=== PATIENT | male | born 1945 | race Caucasian/White ===

== ENCOUNTER 2016-11-27 05:58 | Inpatient (IN) | payer OTHER ==
[2016-11-27] MEDS ORDERED: CHLORHEXIDINE GLUC HIBICLENS 118 ML BTL TP ONE (06:00)
[2016-11-27] MEDS ORDERED: THROMBIN (RECOMBINANT) 20,000 UNIT VIAL TP ONE (07:04)
[2016-11-27] MEDS ORDERED: BUPIVACAINE/EPI 0.25% 30 ML SDV ONE (07:05)
[2016-11-27] MEDS ORDERED: BACITRACIN 50,000 UNITS/10 ML SYR IRR ONE ×3 (07:05→15:00)
[2016-11-27] MEDS ORDERED: LIDOCAINE 1% 5 ML SDV ONE (08:24)
[2016-11-27] MEDS ORDERED: ceFAZolin 2 GM/DEXTROSE 100 ML IV ONE (09:00)
[2016-11-27] MEDS ORDERED: PROPOFOL/EMULSION 500 MG/50 ML BOTTLE IV ONE ×3 (10:32→14:00)
[2016-11-27] MEDS ORDERED: fentaNYL 250 MCG/5 ML INJ ONE (10:32)
[2016-11-27] MEDS ORDERED: MIDAZOLAM 2 MG/2 ML VIAL ONE (10:52)
[2016-11-27] MEDS ORDERED: LACTULOSE 20 GM/30 ML UDCUP PO PRN (10:55)
[2016-11-27] MEDS ORDERED: MAGNESIUM HYDROXIDE 30 ML UDCUP PO PRN (10:55)
[2016-11-27] MEDS ORDERED: ONDANSETRON 4 MG/2 ML VIAL IVP PRN (10:55)
[2016-11-27] MEDS ORDERED: oxyCODONE IR 5 MG TAB PO PRN (10:55)
[2016-11-27] MEDS ORDERED: POLYETHYLENE GLYCOL 3350 17 GM PKT PO PRN (10:55)
[2016-11-27] MEDS ORDERED: TEMAZEPAM 15 MG CAP PO PRN (10:55)
[2016-11-27] MEDS ORDERED: DIAZEPAM 5 MG TAB PO PRN (10:55)
[2016-11-27] MEDS ORDERED: BISACODYL 10 MG SUPP PR PRN (10:55)
[2016-11-27] MEDS ORDERED: HYDROmorphONE/DILAUDID 6 MG/30 ML PCA IV PRN (10:55)
[2016-11-27] MEDS ORDERED: DIAZEPAM 10 MG/2 ML SYR IVP PRN (10:55)
[2016-11-27] MEDS ORDERED: NALOXONE HCL 0.4 MG/ML INJ IVP PRN (10:55)
[2016-11-27] MEDS ORDERED: diphenhydrAMINE 25 MG CAP PO PRN (10:55)
[2016-11-27] MEDS ORDERED: REMIFENTANIL HCL 1 MG VIAL ONE ×2 (11:20→14:01)
[2016-11-27] MEDS ORDERED: PHENYLEPHRINE HCL 100 MCG/ML SYR ONE (11:28)
[2016-11-27] MEDS ORDERED: epHEDrine SULFATE 10 MG/ML SYR ONE ×2 (11:35→11:47)
[2016-11-27] MEDS ORDERED: ceFAZolin 1 GM VIAL ONE ×2 (14:22)
[2016-11-27] MEDS ORDERED: DESFLURANE 240 ML BOTTLE IH ONE (15:46)
[2016-11-27] MEDS ORDERED: HYDROmorphONE/DILAUDID 2 MG/ML SYR ONE (16:08)
[2016-11-27 16:26] LABS: % IMMATURE GRANULYOCYTES 0.8 % (0.0-1.1); ABSOLUTE IMMATURE GRANULOCYTES 0.06 10^3/uL (0.00-0.10); ADD DIFF? NO; ADD MORPH? NO; ADD SCAN? NO; ATYPICAL LYMPHOCYTE FLAG 10 (0-99); FRAGMENT RBC FLAG 0 (0-99); HEMATOCRIT 38.9 % (40.0-51.0); HEMOGLOBIN 13.7 g/dL (13.7-17.5); LEFT SHIFT FLG 10 (0-99); LIPEMIA HEMOLYSIS FLAG 90 (0-99); MEAN CELL HEMOGLOBIN 32.6 pg (27.9-34.1); MEAN CELL HEMOGLOBIN CONCENTR. 35.2 g/dL (32.4-36.7); MEAN CELL VOLUME 92.6 fL (81.5-99.8); MEAN PLATELET VOLUME 9.3 fL (8.7-11.7); PLATELET CLUMPS FLAG 0 (0-99); PLATELET COUNT 197 10^3/uL (150-400); RED CELL DISTRIBUTION WIDTH 12.6 % (11.5-15.2)
[2016-11-27] MEDS ORDERED: ONDANSETRON 4 MG/2 ML VIAL ONE (16:30)
--- NOTE | 2016-11-27 17:18 | SOAPPROG ---
SOAP Progress Note Assessment/Plan: Post Op Visit: S: Awake and alert. NAD. Pt with expected lower back pain O: AFVSS/PERRLA/EOMI no droop CN 2-12 grossly intact +lt touch 5/5 BUE/BLE = CDI CHRISTA in place and working well A/P: 71 yo male that is s/p TLIF at L3/4, L4/5 and L5/S1 -brace when out of bed -call with any questions or concerns -pt seen by Dr Mayo as well -to floor when able 11/27/16 17:15 Objective: Laboratory Results 11/27/16 16:15 ICD10 Worksheet Patient Problems: Problems Problem Status Diagnosed Arthrodesis status Acute Lumbar radiculitis Acute Lumbar stenosis Acute - ICD10 Problem Qualifiers (1) Lumbar stenosis (2) Lumbar radiculitis (3) Arthrodesis status
[2016-11-27] MEDS ORDERED: HYDROmorphONE/DILAUDID 1 MG/ML SYR ONE (17:30)
[2016-11-27] MEDS ORDERED: fentaNYL 100 MCG/2 ML INJ ONE ×2 (17:30→17:47)
[2016-11-27] MEDS ORDERED: DIAZEPAM 10 MG/2 ML SYR ONE (17:47)
--- NOTE | 2016-11-27 18:16 | DX ---
Fluoroscopy greater than one hour Clinical indication: Fusion. Dose: 43.13 mGy. Two 3-D images were performed for a DLP of 219. Two spot fluoroscopic images provided show a fusion from L3 through the sacrum with interbody disk sp acers present. Impression: Fluoroscopy provided for 4-level lumbar fusion. Please see surgeon's note for full clini waldo details.
--- NOTE | 2016-11-27 18:36 | GOP ---
[f rep st] OPERATIVE REPORT DATE OF OPERATION: 11/27/2016 SURGEON: Francesco Mayo MD FACE PAINTER: Mekhi Schilling PA-C PREOPERATIVE DIAGNOSIS: 1. Lumbar spondylolisthesis. 2. Degenerative lumbar scoliosis. 3. Severe lumbar stenosis at L3-4, L4-5, L5-S1. 4. Right lumbosacral radiculopathy. 5. Lumbar degenerative disk disease. POSTOPERATIVE DIAGNOSIS: 1. Lumbar spondylolisthesis. 2. Degenerative lumbar scoliosis. 3. Severe lumbar stenosis at L3-4, L4-5, L5-S1. 4. Right lumbosacral radiculopathy. 5. Lumbar degenerative disk disease. PROCEDURE PERFORMED: Posterolateral and intervertebral arthrodesis with bilateral decompressions at L3-4, L4-5 (14178, 90998), right hemilaminectomy with a posterolateral and intervertebral arthrodesis at L5-S1 (45010), placement of expandable biomechanical intervertebral devices L3-4, L4-5, L5-S1 (22 [phone] x3), same incision bone graft harvest, microscope, spinal stereotaxis for placement of pedicle sc rews bilaterally, posterior segmental instrumentation, L3, L4, L5, S1. FINDINGS: ESTIMATED BLOOD LOSS: 500 cc. INDICATIONS: The patient is a 71-year-old gentleman who had terrible right leg pain and degenerative scoliotic curve with spondylolisthesis that was degenerative in nature at L4-5, L5-S1 and huge right -sided hypertrophic facet arthropathy at L3-4, L4-5, L5-S1. There was severe foraminal stenosis at e ach of these levels, and he in fact had a degree of spinal stenosis and degenerative disk disease wit h spondylosis at L2-3 but we elected not to treat this. He understood that in time he would almost c ertainly require treatment for this. The risk of continued symptoms, nerve injury, spinal fluid leak , pseudoarthrosis, adjacent segment disease, screw and hardware failure and malposition was discussed . He understood these risks. He did want to proceed with surgery. DESCRIPTION OF PROCEDURE: Patient was taken to the operating room, placed in supine position. Gener al anesthesia was begun. He was flipped prone onto the Lucio table. Care was taken to pad all poi nts of contact. His back was sterilely prepped and draped in the usual fashion. A localizing x-ray was taken with the O-arm that had been introduced sterilely to the field. We made a 9 cm incision fr om the spinous processes of L2 to spinous process of S1. The subcutaneous tissue was dissected using Bovie cautery down through the fascia and Subperiosteal dissection was made down the lamina of L3, L 4, L5, and S1. They were absolutely huge facet joints present on the right-hand side more so than le ft but they were hypertrophic on both sides, and we removed much of the huge hypertrophic facets to a ccess the transverse process of L3, L4, L5, and S1. These were decorticated for posterolateral arthr odesis. We then attached the Stealth reference frame to the L4 spinous process, performed an O arm s pin, and using frameless stealth stereotaxy, we placed pedicle screws bilaterally at L3, L4, L5, and the sacrum, and they all stimulated at acceptable levels. The lowest stim was the left S1 screw whic h was bicortical and we backed it out about 1 full turn after stimming. It stimmed at 19 milliamps. It was still bicortical in the position that we left it. We took 100 mm terry for the left and a 90 m m terry for the right, increased the lordosis on the rods, and then distracted between L3, L4, L5, and S1 and reduced the tulips onto the rods and got nice reduction of the spondylolisthesis. He had a no rmal lumbar lordosis now at this point. We used a high-speed drill to remove all the soft tissue of the bone from the spinous processes of L3, L4, L5, and S1. We then harvested the inferior L3 and the complete L4 spinous process for autologous grafting purposes and we drilled bilateral laminectomies of L3, a complete laminectomy of L4, and a right hemilaminectomy of L5, and this bone was harvested f or autologous grafting purposes. Under the scope we performed bilateral decompressions at L3-4, L4-5 , and there was very severe stenosis right greater than left at both levels. At L5-S1 we decompresse d the right-hand side. We identified the exiting L4, L5 and traversing S1 nerve root as well as the exiting L3 nerve root on the right-hand side. We then swept the thecal sac medially beginning at L3- 4, worked in the axilla of the L3 root and completely removed the disk and the cartilaginous endplate s. We then did likewise at L4-5 removing the disk and the cartilaginous endplates. We then did like andrews at L5-S1 removing the disk and the cartilaginous endplates. We roughened the subchondral bone a t each level with the bone rasp to create arthrodesis and we chose 7 x 28 mm devices for each space a nd we sized them using fluoroscopic guidance and trials. We removed the trials and then inserted the se devices with bone autograft and BMP in each of the disk spaces and then after confirming our locat ion, we expanded the expandable elevate cages at each level and got good uatsdin of height. Ther e was good lumbar lordosis. A final x-ray was taken and all the devices were in excellent position. All of the cap screws connecting the rods to the screws had been tightened according to company spec ification. A cross-link was placed. We decorticated all of the remaining visible bone but most of t he bone had been decorticated prior to this and we placed bone autograft and BMP posterolaterally ling aterally. The cross-link was placed. A subfascial drain was placed, and we closed the incision in multiple layers using Vicryl sutures. A running PDS was placed in the skin itself. COMPLICATIONS: None. /[id number]/MODL
[2016-11-27] MEDS: HYDROmorphONE/DILAUDID 1 MG/ML SYR IVP PRN (18:46)
[2016-11-27] MEDS: SENNOSIDES/DOCUSATE SODIUM TAB PO SCH (20:52)
[2016-11-27] MEDS: morphINE SR 15 MG TAB PO SCH (20:53)
[2016-11-27] MEDS ORDERED: FAMOTIDINE 20 MG/NACL 50 ML IV SCH (21:00)
[2016-11-27] MEDS: NS W/ 20 KCl/L 1,000 ML IV SCH (21:04)
[2016-11-27] MEDS: DORZOLAMIDE 2% OPTH DROPS LEFTEYE SCH (21:10)
[2016-11-27] MEDS: TRAVOPROST Z 0.004% 2.5 ML OPHT.BTL LEFTEYE SCH (21:10)
[2016-11-27] MEDS: FAMOTIDINE 20 MG TAB PO SCH (21:13)
[2016-11-28] MEDS: HYDROCODONE/APAP 10/325 TAB PO PRN ×4 (02:26→16:29)
[2016-11-28] MEDS: HYDROmorphONE/DILAUDID 1 MG/ML SYR IVP PRN (03:36)
[2016-11-28 05:41] LABS: % IMMATURE GRANULYOCYTES 0.5 % (0.0-1.1); ABSOLUTE IMMATURE GRANULOCYTES 0.04 10^3/uL (0.00-0.10); ADD DIFF? NO; ADD MORPH? NO; ADD SCAN? NO; ATYPICAL LYMPHOCYTE FLAG 10 (0-99); FRAGMENT RBC FLAG 0 (0-99); HEMATOCRIT 35.4 % (40.0-51.0); HEMOGLOBIN 12.3 g/dL (13.7-17.5); LEFT SHIFT FLG 0 (0-99); LIPEMIA HEMOLYSIS FLAG 90 (0-99); MEAN CELL HEMOGLOBIN 33.4 pg (27.9-34.1); MEAN CELL HEMOGLOBIN CONCENTR. 34.7 g/dL (32.4-36.7); MEAN CELL VOLUME 96.2 fL (81.5-99.8); MEAN PLATELET VOLUME 9.6 fL (8.7-11.7); PLATELET CLUMPS FLAG 20 (0-99); PLATELET COUNT 183 10^3/uL (150-400); RED BLOOD CELL COUNT 3.68 10^6/uL (4.40-6.38); RED CELL DISTRIBUTION WIDTH 12.9 % (11.5-15.2)
[2016-11-28 05:55] LABS: ANION GAP 6 mEq/L (8-16); CALCIUM 8.1 mg/dL (8.5-10.4); CARBON DIOXIDE 26 mEq/l (22-31); CHLORIDE 102 mEq/L (97-110); GLOMERULAR FILTRATION RATE > 60; GLUCOSE 132 mg/dL (70-100); POTASSIUM 4.9 mEq/L (3.5-5.2); SODIUM 134 mEq/L (134-144)
[2016-11-28] MEDS: PANTOPRAZOLE SODIUM 40 MG TAB PO SCH (07:58)
[2016-11-28] MEDS: morphINE SR 15 MG TAB PO SCH ×2 (07:58→20:01)
[2016-11-28] MEDS: SENNOSIDES/DOCUSATE SODIUM TAB PO SCH ×2 (07:58→20:00)
[2016-11-28] MEDS: FAMOTIDINE 20 MG TAB PO SCH ×2 (08:00→20:00)
[2016-11-28] MEDS: DORZOLAMIDE 2% OPTH DROPS LEFTEYE SCH ×2 (08:05→20:13)
--- NOTE | 2016-11-28 08:25 | NEUSURGPN ---
Assessment/Plan: /P: 71 yo male that is s/p TLIF at L3/4, L4/5 and L5/S1 -brace when out of bed -Optimize pain management -PT/OT -DVT prophy: TEDs, SCDs, Lovenox POD #3 -Postop x-rays pending -CHRISTA X1- 455 out- will pull tomorrow -Please call with any neuro or motor exam changes -Patient seen and discussed with Dr. Mayo Subjective: Patient in pain, no leg pain but hasn't been out of bed yet. Denies fever, chills. Objective: NAD, VSS BUE/BLE 5/5= Sensation intact to lt touch Incision c/d/i- CHRISTA X1- output 455 Catheter Insertion Date: 11/27/16 - Physician Discussed Patient with : Gael Patient Seen by : Gael Neurosurgery Physical Exam - Vitals, I&O, Labs I and O 11/27/16 11/28/16 11/29/16 05:59 05:59 05:59 Intake Total 5230 Output Total 1955 140 Balance 3275 -140 Weight 79.379 kg Intake: Oral (ml) 2030 IV Intake (ml) 3200 Output: Urine (ml) 850 Catheter 850 Estimated Blood Loss (ml) 500 Wound Drainage (ml) 605 140 Posterior Back Lucio 455 140 Starkey #1 Right Posterior 150 Lucio Starkey Other: Number of Voids Catheter 1 Vital Signs Temp Pulse Resp BP Pulse Ox 36.6 C 81 16 117/69 95 11/28/16 08:00 11/28/16 08:00 11/28/16 08:00 11/28/16 08:00 11/28/16 08:00 Laboratory Results 11/28/16 05:05 11/28/16 05:05 ICD10 Worksheet Patient Problems: Problems Problem Status Diagnosed Arthrodesis status Acute Lumbar radiculitis Acute Lumbar stenosis Acute
[2016-11-28] MEDS ORDERED: NON-FORMULARY NEW DRUG (Omeprazole [Prilosec 20 Mg] 20 MG) PO SCH (09:00)
[2016-11-28] MEDS: NS W/ 20 KCl/L 1,000 ML IV SCH (10:24)
--- NOTE | 2016-11-28 16:58 | DX ---
Lumbar Spine, Two Views November 28, 2016 Indication: Post fusion. Evaluate hardware. Technique: Upright AP and lateral views. Findings: The bilateral posterior fusion construct extending from L3 to S1 consists of dual posterior rods, transverse brace at L4-L5, and bilateral transvertebral screws at L3, L4, L5, and S1. Devices reside in the L3-L4, L4-L5, and L5-S1 interbody spaces. The hardware is well seated. No perihardware fracture or lucency. L2 is retrolisthesed 3 mm on L3 and L3 is retrolisthesed 4 mm on L4. No compress ion deformity. A surgical drain is present in the posterior soft tissues. Mildly gaseous large bowel pattern. Impression: New well-seated posterior fusion construct extending from L3 to S1.
[2016-11-28] MEDS: ONDANSETRON DISINTEGRATING 4 MG TAB PO PRN (20:00)
[2016-11-28] MEDS: TRAVOPROST Z 0.004% 2.5 ML OPHT.BTL LEFTEYE SCH (20:13)
[2016-11-29] MEDS: HYDROCODONE/APAP 10/325 TAB PO PRN ×2 (04:00→16:29)
--- NOTE | 2016-11-29 07:34 | NEUSURGPN ---
Date of Surgery: 11/27/16 Post Op Day: 2 Assessment/Plan: Assessment: 71 yo male that is s/p TLIF at L3/4, L4/5 and L5/S1 POD #2 Plan: -brace when out of bed-tolerating well -Optimize pain management-doing well with current plan -PT/OT-CPM -DVT prophy: TEDs, SCDs, Lovenox POD #3 -Postop x-rays look good-no complications or loosening -CHRISTA to be removed today -Please call with any neuro or motor exam changes -Patient seen and discussed with Dr. Mayo Subjective: Awake and alert. Pt has some lower back pain but is doing well for the most part with no leg complaints. No f/c/n/v/d. Objective: NAD, VSS BUE/BLE 5/5= Sensation intact to lt touch Incision c/d/i- CHRISTA X1-to be removed this am Neuro Check Frequency: per routine Urinary Catheter in Place: No Catheter Insertion Date: 11/27/16 - Physician Discussed Patient with : Gael Patient Seen by : Gael Neurosurgery Physical Exam - Vitals, I&O, Labs I and O 11/28/16 11/29/16 11/30/16 05:59 05:59 05:59 Intake Total 5230 1800 Output Total 1955 1545 Balance 3275 255 Weight 79.379 kg Intake: Oral (ml) 2030 1800 IV Intake (ml) 3200 Output: Urine (ml) 850 475 Catheter 850 Urinal 475 Estimated Blood Loss (ml) 500 Wound Drainage (ml) 605 1070 Posterior Back Lucio 455 1070 Starkey #1 Right Posterior 150 Lucio Starkey Other: Number of Voids Catheter 1 Toilet 1 Number of Emesis 3 Occurrences Vital Signs Temp Pulse Resp BP Pulse Ox 36.8 C 91 16 103/61 96 11/29/16 04:00 11/29/16 04:00 11/29/16 04:00 11/29/16 04:00 11/29/16 04:00 Laboratory Results 11/28/16 05:05 11/28/16 05:05 ICD10 Worksheet Patient Problems: Problems Problem Status Diagnosed Arthrodesis status Acute Lumbar radiculitis Acute Lumbar stenosis Acute - ICD10 Problem Qualifiers (1) Lumbar stenosis (2) Lumbar radiculitis (3) Arthrodesis status
[2016-11-29] MEDS: morphINE SR 15 MG TAB PO SCH (08:41)
[2016-11-29] MEDS: PANTOPRAZOLE SODIUM 40 MG TAB PO SCH (08:42)
[2016-11-29] MEDS: FAMOTIDINE 20 MG TAB PO SCH ×2 (08:43→20:37)
[2016-11-29] MEDS: SENNOSIDES/DOCUSATE SODIUM TAB PO SCH ×2 (08:44→20:37)
[2016-11-29] MEDS: DORZOLAMIDE 2% OPTH DROPS LEFTEYE SCH ×2 (09:28→22:53)
[2016-11-29] MEDS ORDERED: PROMETHAZINE HCL 25 MG/ML VIAL ONE (18:52)
[2016-11-29] MEDS ORDERED: METOCLOPRAMIDE 10 MG/2 ML VIAL IVP PRN (18:54)
[2016-11-29] MEDS ORDERED: SCOPOLAMINE HYDROBROMIDE 1.5 MG PATCH TD PRN (18:56)
[2016-11-29] MEDS: NS W/ 20 KCl/L 1,000 ML IV SCH (19:03)
[2016-11-29] MEDS: PROMETHAZINE HCL 25 MG/ML VIAL IVP PRN (19:04)
[2016-11-29] MEDS: METHOCARBAMOL 750 MG TAB PO PRN (20:38)
[2016-11-29] MEDS: ACETAMINOPHEN 325 MG TAB PO PRN (20:38)
[2016-11-29] MEDS: TRAVOPROST Z 0.004% 2.5 ML OPHT.BTL LEFTEYE SCH (22:54)
[2016-11-30] MEDS: ACETAMINOPHEN 325 MG TAB PO PRN ×3 (04:59→16:17)
[2016-11-30] MEDS: ONDANSETRON DISINTEGRATING 4 MG TAB PO PRN ×2 (04:59→10:26)
--- NOTE | 2016-11-30 08:50 | NEUSURGPN ---
Date of Surgery: 11/27/16 Post Op Day: 3 Assessment/Plan: Assessment: 71 yo male that is s/p TLIF at L3/4, L4/5 and L5/S1 POD #3 Plan: -brace when out of bed-tolerating well -Optimize pain management-doing well with current plan -pt had some nausea last night and medications adjusted-doing better now -will work on bowel protocol today and if able to move bowels then pt wants to dc home today -PT/OT-CPM -DVT prophy: TEDs, SCDs, Lovenox POD #3 -Postop x-rays look good-no complications or loosening-reviewed with the patient -CHRISTA removed already -Please call with any neuro or motor exam changes -Patient discussed with Dr. Mayo Subjective: Awake and alert. NAD. Pt with some expected lower back pain. No gaston/neck/chest /abd or gu complaints. No nausea now. No f/c/n/v/d now. Objective: NAD, VSS BUE/BLE 5/5= Sensation intact to lt touch Incision c/d/i- CHRISTA removed intact Neuro Check Frequency: per routine Urinary Catheter in Place: No Catheter Insertion Date: 11/27/16 - Physician Discussed Patient with : Gael Neurosurgery Physical Exam - Vitals, I&O, Labs I and O 11/29/16 11/30/16 12/01/16 05:59 05:59 05:59 Intake Total 1800 500 Output Total 1545 300 Balance 255 200 Intake: Oral (ml) 1800 500 Output: Urine (ml) 475 Urinal 475 Emesis (ml) 300 Wound Drainage (ml) 1070 Posterior Back Lucio 1070 Starkey Other: Number of Voids Toilet 1 1 Number of Emesis 3 Occurrences Vital Signs Temp Pulse Resp BP Pulse Ox 36.9 C 84 15 115/70 94 11/30/16 08:00 11/30/16 08:00 11/30/16 08:00 11/30/16 08:00 11/30/16 08:00 Laboratory Results 11/28/16 05:05 11/28/16 05:05 ICD10 Worksheet Patient Problems: Problems Problem Status Diagnosed Arthrodesis status Acute Lumbar radiculitis Acute Lumbar stenosis Acute - ICD10 Problem Qualifiers (1) Lumbar stenosis (2) Lumbar radiculitis (3) Arthrodesis status
--- NOTE | 2016-11-30 09:02 | PDIAF ---
- Diagnosis Diagnosis: s/p TLIF L3-S1 Code Status: Full Code - Medication Management Discharge Medications: Medications to Continue on Transfer Acetaminophen [Tylenol 325mg (*)] 325 mg PO DAILY PRN 10/21/16 [Last Taken 11/26 22:00] Dorzolamide 2% [Trusopt 2% (*)] 1 drop LEFTEYE BID 10/21/16 [Last Taken 11/26/16 ] Multivitamins [Multivitamin (*)] 1 each PO DAILY 10/21/16 [Last Taken 11/13/16] Omeprazole [Prilosec 20 mg] 20 mg PO DAILY 10/21/16 [Last Taken 11/26/16] Travoprost Z 0.004% [Travatan Z 0.004% (*)] 1 drops LEFTEYE HS 10/21/16 [Last Taken 11/26/16] Diazepam [Valium 5 MG (*)] 5 mg PO QID PRN #30 tab 11/30/16 [Last Taken Unknown] HYDROcodone/APAP 10/325 [[place] 10/325 (*)] 1 - 2 tab PO Q6HRS PRN #90 tab [Last Taken Unknown] Methocarbamol [Robaxin 750 mg (*)] 750 mg PO QID PRN #50 tab 11/30/16 [Last Taken Unknown] Ondansetron Odt [Zofran Odt 4 mg (*)] 4 - 8 mg PO Q6HRS PRN #30 tab 11/30/16 [ Last Taken Unknown] Scopolamine Hydrobromide [Transderm-Scop] 1.5 mg TD Q3D PRN #5 patch 11/30/16 [ Last Taken Unknown] Sennosides/Docusate Sodium [Senokot-S] 1 - 2 tab PO BID #30 tab 11/30/16 [Last Taken Unknown] Residential Antibiotics: none Discharge Medications: Refer to the Discharge Home Medication list for PRN reason. PICC Care - Routine: N/A - Orders Services needed: Home Care, Registered Nurse, Physical Therapy, Occupational Therapy Home Care Face to Face: I certify that this patient was under my care and that I had the required [id number] encounter meeting the encounter requirements on the discharge day. My findings support the fact that the patient is homebound as defined in CMS Chapter 7 Medicare Benefits Manual 30.1.1, The condition of the patient is such that there exists a normal inability to leave home and consequently, leaving home would require a considerable and taxing effort. Oxygen: to keep O2 sat greater than 90% Diet Recommendation: no restrictions on diet Diet Texture: Regular Texture Diet Tube feeding: n/a Kelley: Not applicable Wound Care Instructions: leave dressing on until first shower then ok to remove but leave the steristrips in place until your post op visit - Follow Up Care Current Providers and Referrals: Doctor Not,On Staff, [Primary Care Provider] - Quinten Mayo MD [Medical Doctor] - (follow up in 2-3 weeks for a recheck)
[2016-11-30] MEDS: FAMOTIDINE 20 MG TAB PO SCH ×2 (09:11→19:59)
[2016-11-30] MEDS: ENOXAPARIN 40 MG/0.4 ML SYR SC SCH (09:11)
[2016-11-30] MEDS: PANTOPRAZOLE SODIUM 40 MG TAB PO SCH (09:11)
[2016-11-30] MEDS: DORZOLAMIDE 2% OPTH DROPS LEFTEYE SCH ×2 (09:12→20:11)
[2016-11-30] MEDS: SENNOSIDES/DOCUSATE SODIUM TAB PO SCH ×2 (09:13→20:11)
[2016-11-30] MEDS: PROMETHAZINE HCL 25 MG/ML VIAL IVP PRN ×2 (12:24→20:06)
[2016-11-30] MEDS: METHOCARBAMOL 750 MG TAB PO PRN (16:16)
[2016-11-30] MEDS: TRAVOPROST Z 0.004% 2.5 ML OPHT.BTL LEFTEYE SCH (20:12)
[2016-11-30 23:35] VITALS: RESP 14
[2016-12-01] MEDS: ONDANSETRON DISINTEGRATING 4 MG TAB PO PRN (04:18)
[2016-12-01] MEDS: ACETAMINOPHEN 325 MG TAB PO PRN ×2 (04:18→08:28)
[2016-12-01] MEDS: METHOCARBAMOL 750 MG TAB PO PRN (04:18)
[2016-12-01 07:23] VITALS: BP 110/70; PULSE 68; TEMP 98.2; O2SAT 97
[2016-12-01] MEDS: PANTOPRAZOLE SODIUM 40 MG TAB PO SCH (08:29)
[2016-12-01] MEDS: ENOXAPARIN 40 MG/0.4 ML SYR SC SCH (08:29)
[2016-12-01] MEDS: FAMOTIDINE 20 MG TAB PO SCH (08:29)
[2016-12-01] MEDS: SENNOSIDES/DOCUSATE SODIUM TAB PO SCH (08:30)
[2016-12-01] MEDS: DORZOLAMIDE 2% OPTH DROPS LEFTEYE SCH (08:30)
--- NOTE | 2016-12-01 09:56 | NEUSURGPN ---
Date of Surgery: 11/27/16 Post Op Day: 4 Assessment/Plan: Assessment: 71 yo male that is s/p TLIF at L3/4, L4/5 and L5/S1 POD #4 Plan: -brace when out of bed-tolerating well-no skin issues -Optimize pain management-doing well with current plan -pt had some nausea 2 nights ago and medications adjusted-doing better now -pt is passing gas and has moved his bowels now -PT/OT-CPM -DVT prophy: TEDs, SCDs, Lovenox POD #3-no further lovenox needed as walking well -Postop x-rays look good-no complications or loosening-reviewed with the patient -CHRISTA removed already -Please call with any neuro or motor exam changes -Patient discussed with Dr. Mayo Subjective: Awake and alert. NAD. Eating/drinking and voiding. Pt walking well with at least walking 100-200 yrds 2-3x per day Objective: NAD, VSS BUE/BLE 5/5= Sensation intact to lt touch Incision c/d/i- CHRISTA removed intact already Neuro Check Frequency: per routine Urinary Catheter in Place: No Catheter Insertion Date: 11/27/16 - Physician Discussed Patient with : Gael Neurosurgery Physical Exam - Vitals, I&O, Labs I and O 11/30/16 12/01/16 12/02/16 05:59 05:59 05:59 Intake Total 500 400 Output Total 300 750 Balance 200 -350 Intake: Oral (ml) 500 400 Output: Urine (ml) 750 Urinal 750 Emesis (ml) 300 Other: Intake Quantity Yes Sufficient Number of Voids Urinal 3 Toilet 1 1 Number of Stools Toilet 1 Vital Signs Temp Pulse Resp BP Pulse Ox 36.8 C 68 14 110/70 97 12/01/16 07:21 12/01/16 07:21 12/01/16 07:21 12/01/16 07:21 12/01/16 07:21 Laboratory Results 11/28/16 05:05 11/28/16 05:05 ICD10 Worksheet Patient Problems: Problems Problem Status Diagnosed Arthrodesis status Acute Lumbar radiculitis Acute Lumbar stenosis Acute - ICD10 Problem Qualifiers (1) Lumbar stenosis (2) Lumbar radiculitis (3) Arthrodesis status
--- NOTE | 2016-12-01 10:05 | PDIAF ---
- Diagnosis Diagnosis: s/p TLIF L3-S1 Code Status: Full Code - Medication Management Discharge Medications: Medications to Continue on Transfer Acetaminophen [Tylenol 325mg (*)] 325 mg PO DAILY PRN 10/21/16 [Last Taken 11/26 22:00] Dorzolamide 2% [Trusopt 2% (*)] 1 drop LEFTEYE BID 10/21/16 [Last Taken 11/26/16 ] Multivitamins [Multivitamin (*)] 1 each PO DAILY 10/21/16 [Last Taken 11/13/16] Omeprazole [Prilosec 20 mg] 20 mg PO DAILY 10/21/16 [Last Taken 11/26/16] Travoprost Z 0.004% [Travatan Z 0.004% (*)] 1 drops LEFTEYE HS 10/21/16 [Last Taken 11/26/16] Diazepam [Valium 5 MG (*)] 5 mg PO QID PRN #30 tab 11/30/16 [Last Taken Unknown] HYDROcodone/APAP 10/325 [[place] 10/325 (*)] 1 - 2 tab PO Q6HRS PRN #90 tab [Last Taken Unknown] Methocarbamol [Robaxin 750 mg (*)] 750 mg PO QID PRN #50 tab 11/30/16 [Last Taken Unknown] Ondansetron Odt [Zofran Odt 4 mg (*)] 4 - 8 mg PO Q6HRS PRN #30 tab 11/30/16 [ Last Taken Unknown] Scopolamine Hydrobromide [Transderm-Scop] 1.5 mg TD Q3D PRN #5 patch 11/30/16 [ Last Taken Unknown] Sennosides/Docusate Sodium [Senokot-S] 1 - 2 tab PO BID #30 tab 11/30/16 [Last Taken Unknown] Skilled Nursing Antibiotics: none Discharge Medications: Refer to the Discharge Home Medication list for PRN reason. PICC Care - Routine: N/A - Orders Services needed: Home Care, Registered Nurse, Physical Therapy, Occupational Therapy Home Care Face to Face: I certify that this patient was under my care and that I had the required [id number] encounter meeting the encounter requirements on the discharge day. My findings support the fact that the patient is homebound as defined in CMS Chapter 7 Medicare Benefits Manual 30.1.1, The condition of the patient is such that there exists a normal inability to leave home and consequently, leaving home would require a considerable and taxing effort. Oxygen: to keep O2 sat greater than 90% Diet Recommendation: no restrictions on diet Diet Texture: Regular Texture Diet Tube feeding: n/a Kelley: Not applicable Wound Care Instructions: leave dressing on until first shower then ok to remove but leave the steristrips in place until your post op visit - Follow Up Care Current Providers and Referrals: Doctor Not,On Staff, [Primary Care Provider] - Quinten Mayo MD [Medical Doctor] - (follow up in 2-3 weeks for a recheck)
== END 2016-12-01 14:28 | disposition home health service (06) | DRG 458 ==
LOC: F3E 05:58 → F3N 18:30
PROVIDERS: ADMIT Neurological Surgery; ATTEND Neurological Surgery
DX: M51.17 Intervertebral disc disorders with radiculopathy, lumbosacral region (principal); M51.36 Other intervertebral disc degeneration, lumbar region; M47.816 Spondylosis without myelopathy or radiculopathy, lumbar region; M43.16 Spondylolisthesis, lumbar region; M41.56 Other secondary scoliosis, lumbar region; M48.06 Spinal stenosis, lumbar region; M48.07 Spinal stenosis, lumbosacral region; K21.9 Gastro-esophageal reflux disease without esophagitis
CPT/HCPCS: 97116-GP; 97161-GP; 97166-GO; 97530-GP; 97535-GO; C1713; G8978-GP-CJ; G8979-GP-CI; G8980-GP-CI; J0690; J1170; J1650; J2250; J2370; J2405; J2550; J2704; J3010

== ENCOUNTER 2017-03-17 14:11 | Observation (INO) | payer OTHER ==
--- NOTE | 2017-03-17 15:26 | EDPHY ---
H & P Stated Complaint: Lower lumbar pain moving to right leg. Time Seen by Provider: 03/17/17 15:26 HPI/ROS: CHIEF COMPLAINT: Lower back pain, right leg pain. HISTORY OF PRESENT ILLNESS: The patient is a 71-year-old male with a history of spondylolisthesis who presents with lower back pain and right leg pain. He had vertebral decompression surgery in November 2016 to correct his spondylolisthesis at L3-4 and L4-5 and felt well until 3 weeks ago, when the back pain returned. It has been worsening since then. He has associated pain in his right upper leg and right foot. The back pain does not radiate around to his groin. He did have steroid injections 5 days ago in the lumbar spine and is due to have surgery next week for decompression at L1-2. No fever, chills, chest pain, shortness of breath, palpitations, vomiting, diarrhea, urinary complaints, headache, lightheadedness. REVIEW OF SYSTEMS: Aside from elements discussed in the HPI, a comprehensive 10-point review of systems was reviewed and is negative. PAST MEDICAL HISTORY: Lumbar spondylolisthesis, bilateral knee replacements, GERD, glaucoma, hiatal hernia, esophageal dilation. SOCIAL HISTORY: , lives in [place]. VITAL SIGNS: Reviewed by me GENERAL: Well-developed, well-nourished, moving slowly about the bed. HEENT: Benign. LUNGS: Clear to auscultation bilaterally, no wheezes, rhonchi or rales. CARDIAC: Regular rate and rhythm, no rubs, murmurs or gallops. ABDOMEN: Soft, nontender, nondistended, bowel sounds normal. BACK: No CVA tenderness. Midline healing scar. No tenderness. EXTREMITIES: No trauma. No edema. Range of motion is normal throughout. Diminished patellar reflex at right knee. NEURO: Alert and oriented. Decreased sensation to light touch at dorsum of right foot. SKIN: Warm and dry, no rash. PSYCHIATRIC: Normal mentation, no agitation. Portions of this note were transcribed by a medical billing associate. I personally performed a history, physical exam, medical decision making, and confirmed accuracy of information the transcribed note. Source: Patient Exam Limitations: No limitations - Personal History Current Tetanus/Diphtheria Vaccine: Yes Current Tetanus Diphtheria and Acellular Pertussis (TDAP): Yes - Medical/Surgical History Hx Asthma: No Hx Chronic Respiratory Disease: No Hx Diabetes: No Hx Cardiac Disease: No Hx Renal Disease: No Hx Cirrhosis: No Hx Alcoholism: No Hx HIV/AIDS: No Hx Splenectomy or Spleen Trauma: No Other PMH: B TKA's, GERD, glaucoma L eye, abdominal/hiatal hernia, esophageal dilation in past, lower lumbar surg. - Social History Smoking Status: Never smoked Constitutional: Initial Vital Signs Temperature (C) 36.6 C 03/17/17 14:14 Heart Rate 67 03/17/17 14:14 Respiratory Rate 18 03/17/17 14:14 Blood Pressure 166/95 H 03/17/17 14:14 O2 Sat (%) 94 03/17/17 14:14 O2 Delivery Mode Room Air Allergies/Adverse Reactions: hydrocodone Allergy (Verified 03/14/17 11:12) Other-Enter Comments Penicillins Allergy (Verified 11/26/16 18:13) Itching Home Medications: Medication Instructions Recorded Dorzolamide 2% [Trusopt 2% (*)] 1 drop LEFTEYE BID 10/21/16 Omeprazole [Prilosec 20 mg] 20 mg PO DAILY 10/21/16 Travoprost Z 0.004% [Travatan Z 1 drops LEFTEYE HS 10/21/16 0.004% (*)] Acetaminophen [Tylenol ES 500 mg 1,000 mg PO TID 03/17/17 (*)] Calcium Carbonate [Tums 500MG (*)] 1,000 mg PO HS 03/17/17 traMADol [Ultram 50 mg (*)] 50 mg PO Q6 03/17/17 Gabapentin [Neurontin 300 MG (*)] 300 mg PO TID #90 cap 03/18/17 Ondansetron Odt [Zofran Odt 4 mg 4 mg PO Q4HRS PRN #10 tab 03/18/17 (*)] oxyCODONE IR [Oxycodone Ir (*)] 5 - 10 mg PO Q4 PRN #90 tab 03/18/17 Medical Decision Making ED Course/Re-evaluation: 71-year-old male with a history of lumbar spondylolisthesis and right lumbar radiculopathy presents with worsening back pain and right leg pain. He had surgery in November for decompression at 2 lumbar levels and is due to have decompression at L1-2 next week. On exam he does have decreased sensation to the right foot. He is requesting a steroid injection. I have paged the neurosurgical PA for consultation. An IV was established. I reviewed the patient 's discharge summary 12/01/2016. 1mg IV Dilaudid administered for pain. 1553: Consulted with Jovita Okeefe, neurosurgery PA. She will admit the patient for steroid injection and further pain management as needed. 1619: Reassessed patient. I advised him of his admission. He is happy and comfortable with the plan. Differential Diagnosis: Diff dx of patients back pain considered including but not limited to disc herniation, radicular symptoms, spinal stenosis, degernative disease, chronic pain. - Data Points Medications Given: Discontinued Medications Acetaminophen (Tylenol) 650 mg PO Q4HRS PRN PRN Reason: Pain, Mild/Fever, Can Take PO Stop: 09/13/17 19:11 Last Admin: 03/18/17 08:54 Dose: 650 mg Calcium Carbonate (Tums) 1,000 mg PO HS DINORA Stop: 09/13/17 20:59 Last Admin: 03/17/17 19:45 Dose: 1,000 mg Dorzolamide HCl (Trusopt 2%) 1 drops LEFTEYE BID DINORA Stop: 09/13/17 20:59 Last Admin: 03/18/17 13:44 Dose: Not Given Gabapentin (Neurontin) 300 mg PO TID DINORA Stop: 09/13/17 21:59 Last Admin: 03/18/17 08:56 Dose: 300 mg Hydromorphone HCl (Dilaudid) 1 mg IVP EDNOW ONE Stop: 03/17/17 15:45 Last Admin: 03/17/17 16:00 Dose: 1 mg Oxycodone HCl (Oxycodone Ir) 5 - 10 mg PO Q4 PRN PRN Reason: Pain, Severe Able to Take PO Stop: 03/27/17 22:41 Last Admin: 03/18/17 08:55 Dose: 10 mg Pantoprazole Sodium (Protonix) 40 mg PO DAILY DINORA Stop: 09/14/17 08:59 Last Admin: 03/18/17 08:56 Dose: 40 mg Tramadol HCl (Ultram) 50 mg PO Q6 DINORA Stop: 09/14/17 00:00 Last Admin: 03/18/17 12:30 Dose: 50 mg Travoprost (Travatan Z 0.004%) 1 drops CHENCHO HS DINORA Stop: 09/13/17 20:59 Last Admin: 03/17/17 23:45 Dose: Not Given Departure - Departure Disposition: [facility] Acute Clinical Impression: Lumbar radiculopathy Back pain Qualifiers: Back pain location: low back pain Chronicity: acute Back pain laterality: right Sciatica presence: unspecified whether sciatica present Qualified Code(s) : M54.5 - Low back pain Condition: Good Report Scribed for: Eloisa Pratt Report Scribed by: Kevon Calles Date of Report: 03/17/17 Time of Report: 15:26
[2017-03-17] MEDS ORDERED: HYDROmorphONE/DILAUDID 1 MG/ML SYR IVP ONE (15:44)
[2017-03-17 16:14] LABS: % IMMATURE GRANULYOCYTES 1.7 % (0.0-1.1); ABSOLUTE IMMATURE GRANULOCYTES 0.13 10^3/uL (0.00-0.10); ADD DIFF? NO; ADD MORPH? NO; ADD SCAN? NO; ATYPICAL LYMPHOCYTE FLAG 10 (0-99); FRAGMENT RBC FLAG 0 (0-99); HEMATOCRIT 44.3 % (40.0-51.0); HEMOGLOBIN 15.2 g/dL (13.7-17.5); LEFT SHIFT FLG 10 (0-99); LIPEMIA HEMOLYSIS FLAG 90 (0-99); MEAN CELL HEMOGLOBIN 30.3 pg (27.9-34.1); MEAN CELL HEMOGLOBIN CONCENTR. 34.3 g/dL (32.4-36.7); MEAN CELL VOLUME 88.4 fL (81.5-99.8); MEAN PLATELET VOLUME 9.2 fL (8.7-11.7); PLATELET CLUMPS FLAG 20 (0-99); PLATELET COUNT 297 10^3/uL (150-400); RED BLOOD CELL COUNT 5.01 10^6/uL (4.40-6.38); RED CELL DISTRIBUTION WIDTH 13.5 % (11.5-15.2)
[2017-03-17 16:27] LABS: ANION GAP 10 mEq/L (8-16); CALCIUM 9.6 mg/dL (8.5-10.4); CARBON DIOXIDE 22 mEq/l (22-31); CHLORIDE 101 mEq/L (97-110); CREATININE 0.8 mg/dL (0.7-1.3); GLOMERULAR FILTRATION RATE > 60; GLUCOSE 88 mg/dL (70-100); POTASSIUM 4.6 mEq/L (3.5-5.2); SODIUM 133 mEq/L (134-144)
[2017-03-17] MEDS ORDERED: METOCLOPRAMIDE 10 MG TAB PO PRN (19:12)
[2017-03-17] MEDS ORDERED: ONDANSETRON 4 MG/2 ML VIAL IVP PRN (19:12)
[2017-03-17] MEDS ORDERED: ONDANSETRON DISINTEGRATING 4 MG TAB PO PRN (19:12)
[2017-03-17] MEDS ORDERED: diphenhydrAMINE 25 MG CAP PO PRN (19:12)
[2017-03-17] MEDS: ACETAMINOPHEN 325 MG TAB PO PRN (19:44)
--- NOTE | 2017-03-17 20:10 | NEUSURGPN ---
Assessment/Plan: Full neurosurgery consult dictated 71 yo male with hx of L3-S1 fusion with Dr. Mayo in November 2016 now with horrible right leg pain thought to be some from adjacent segment at L2/3 and possibly from L5/S1 as well. -Admit for pain control and to receive injection tomorrow from IR at L5/S1 right TFESI. -Can be discharged home tomorrow if doing well form injection -If does not tolerate may get surgery sooner from Dr. Ramirez or if doing well from injection plan on getting surgery for L2/3 level and revision of L5/S1 level with Dr. Mayo in the next couple of weeks -Patient seen by Dr. Shepard as well -Neuro intact Marizol Hensley-RIVERA Siddiqui, [facility] [phone] [facility] - Physician Discussed Patient with Dr.: Shepard Patient Seen by Dr.: Shepard Neurosurgery Physical Exam - Vitals, I&O, Labs I and O 03/16/17 03/17/17 03/18/17 05:59 05:59 05:59 Intake Total 1000 Balance 1000 Weight 78.92 kg Intake: IV Infused (ml) 1000 Vital Signs Temp Pulse Resp BP Pulse Ox 36.8 C 59 L 16 164/92 H 93 03/17/17 18:25 03/17/17 18:25 03/17/17 18:25 03/17/17 18:25 03/17/17 18:25 Laboratory Results 03/17/17 16:02 03/17/17 16:02 ICD10 Worksheet Patient Problems: Problems Problem Status Onset Lumbar radiculopathy Acute Arthrodesis status Acute Lumbar radiculitis Acute Lumbar stenosis Acute
[2017-03-17] MEDS ORDERED: CALCIUM CARBONATE 500 MG CHEWABLE TAB PO SCH (21:00)
[2017-03-17] MEDS ORDERED: TRAVOPROST Z 0.004% 2.5 ML OPHT.BTL LEFTEYE SCH (21:00)
[2017-03-17] MEDS: GABAPENTIN 300 MG CAP PO SCH (21:09)
--- NOTE | 2017-03-17 22:39 | GHP ---
[f rep st] HISTORY AND PHYSICAL DATE OF ADMISSION: 03/17/2017 CHIEF COMPLAINT: Right leg pain and back pain. HISTORY OF PRESENT ILLNESS: This is a 71-year-old male with a history of spondylolisthesis and who had a recent surgery with Dr. Mayo in November of 2016 to correct this, with a L3 through S1 transforaminal lumbar interbody fusion. Since his surgery, he has been doing well until about 3 weeks ago when his back pain returned. It has been worsening since then, and has also started to radiate to his right leg around his hip to his lateral thigh and to the lateral side of his baird and top of his foot. The back pain has gotten better as he did receive a steroid injection approximately [address] Martinez. 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 The patient has plans in the next few weeks to go surgery again by Dr. Mayo for the adjacent level at L2-3 and possible exploration and redo at L5-S1 level. The patient states that he was doing okay after his injections with Dr. Martinez, but last night he started to have excruciating right leg pain that was unbearable and was recommended by Dr. Martinez as well as Dr. Mayo to be seen in the emergency room for pain control. The patient also is interested in possibly getting another steroid injection at the L5-S1 level in order to hold him over before surgery. The patient denies any weakness in his legs, and denies any loss of bowel or bladder control or saddle anesthesia. The patient denies any fever or chills, chest pain. REVIEW OF SYSTEMS: All pertinent positive and negative review of systems are as stated in the HPI. PAST MEDICAL HISTORY: The patient has a history of lumbar spondylolisthesis, bilateral knee replacements, GERD, glaucoma, hiatal hernia, and esophageal dilation. SOCIAL HISTORY: Patient is . His is at the bedside today. They live in [place]. The patient denies any tobacco use. PAST SURGICAL HISTORY: History of L3 through S1 lumbar fusion with Dr. Mayo in November of 2016, and bilateral knee replacements. ALLERGIES: Patient reported to hydrocodone. Reaction is nausea and vomiting and is very allergic to penicillins and his reaction is itching. OBJECTIVE: VITAL SIGNS: Blood pressure 154/92, heart rate 59, respiratory rate 16, O2 saturation 92% on room air. Temperature is 36.8. GENERAL: The patient is a well-developed, well-nourished male in no acute distress. HEENT: Head is normocephalic, atraumatic. Pupils are equal, react to light and accommodation. Extraocular muscles are intact. RESPIRATORY: The patient has normal work of breathing. CARDIOVASCULAR: The patient is well perfused. ABDOMEN: Patient has no guarding and abdomen is soft. NEUROLOGIC: Cranial nerves 2-12 are grossly intact. Patient is conversing appropriately. He is alert and oriented x3. His tongue protrusion is midline. Accessory muscles are 5/5 equal in strength. Motor exam: Bilateral upper extremities are 5/5 and equal strength in deltoids, biceps, triceps, wrist extensors and flexors, interossei and manual lathe operator, and bilateral lower extremities are 5/5 equal in strength and hamstrings, quadriceps, dorsiflexion plantar flexion, and EHL. The patient has normal digit sensation, is intact over the normal dermatomal distribution of the body. EXTREMITIES: There is no cyanosis or edema noted. OTHER REFLEXES : There is no clonus and Babinski is negative. DIAGNOSTIC IMAGING: All diagnostic imaging reports have not yet been loaded. The patient's does have these images from [facility] and these will be loaded on radiology system later. Of note, Dr. 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 The most recent x-rays available for my viewing on the [facility] PAX review intact hardware without evidence of failure. LABORATORY DATA: White blood cell count 7.78, red blood cell count 5.01, hemoglobin 15.2, hematocrit 44.3, platelets 297. Sodium 133, potassium 4.6, chloride 101, carbon dioxide 22, anion gap 10, BUN 14, creatinine 0.8, GFR greater than 60, glucose 88, calcium 9.6. ASSESSMENT AND PLAN: This is a 71-year-old male who underwent a L3 through S1 lumbar fusion in November [address] Mayo. He was doing well until recently when he has had an acute onset of worsening back pain as well as a severe right leg pain, that seems to be an L5 distribution. He has recently received some injections with Dr. Martinez but continues to have severe right leg pain which brings him into the emergency room this evening. The patient remains neurologically intact without any signs of weakness or cord compression. Dr. Mayo was also communicated with this evening in regard to this patient, and we do suggest the patient received an epidural steroid injection at the L5-S1 level on the right tomorrow to try to decrease his right leg pain and also for diagnostic surgical planning purposes. Should this pain not be alleviated enough by the injection, the patient could be a candidate for sooner Neurosurgery with Dr. Ramirez, and Dr. Mayo has been in contact with Dr. Ramirez about this as well. Should everything go well and the patient gets relief of his right leg pain after the injection tomorrow, the patient can be discharged home with followup with Dr. Mayo in a couple weeks for surgery. We will also start the patient on gabapentin to see if this can help with some of his leg pain. He will be admitted to the medicine service overnight with plans for a L5-S1 right-sided transforaminal epidural steroid injection tomorrow , which has already been ordered. His activity is as tolerated and he will work with physical therapy while he is here. Any questions or concerns or any changes in his neuromotor exam, please contact the Neurosurgical team. This patient was seen by the Neurosurgical Services assigned to emergency room at approximately 5:30 p.m. /[id number]/MODL MTDD
[2017-03-17] MEDS: oxyCODONE IR 5 MG TAB PO PRN (23:06)
[2017-03-17] MEDS: traMADol 50 MG TAB PO SCH (23:07)
[2017-03-17] MEDS: DORZOLAMIDE 2% OPTH DROPS LEFTEYE SCH (23:44)
[2017-03-18] MEDS: oxyCODONE IR 5 MG TAB PO PRN ×2 (03:12→08:55)
[2017-03-18] MEDS: ACETAMINOPHEN 325 MG TAB PO PRN ×2 (03:15→08:54)
[2017-03-18] MEDS: traMADol 50 MG TAB PO SCH ×2 (05:26→12:30)
--- NOTE | 2017-03-18 08:02 | NEUSURGPN ---
Assessment/Plan: Assessment: 71 yo male that is s/p L spine fusion with adjacent segment disease above fusion Plan: -pt is slated for surgery next week -plan for injection today with IR -order in place for injection -PT/OT pending -plan for injection and dc later today if he gets some relief then may dc later today -call with any questions or concerns Subjective: Awake and alert, NAD. Eating/drinking and voiding. No f/c/n/v/d. Objective: AAO x 3, PERRLA/EOMI no droop CN 2-12 grossly intact AMENA x 4 CDI Neuro Check Frequency: per routine Urinary Catheter in Place: No - Physician Discussed Patient with Dr.: Gael Neurosurgery Physical Exam - Vitals, I&O, Labs I and O 03/17/17 03/18/17 03/19/17 05:59 05:59 05:59 Intake Total 1500 Balance 1500 Weight 78.92 kg Intake: Oral (ml) 500 IV Infused (ml) 1000 Other: Intake Quantity Yes Sufficient Number of Voids Toilet 1 Vital Signs Temp Pulse Resp BP Pulse Ox 36.7 C 65 16 127/71 H 93 03/17/17 23:12 03/17/17 23:12 03/17/17 23:12 03/17/17 23:12 03/17/17 23:12 Laboratory Results 03/17/17 16:02 03/17/17 16:02 ICD10 Worksheet Patient Problems: Problems Problem Status Onset Lumbar radiculopathy Acute Arthrodesis status Acute Lumbar radiculitis Acute Lumbar stenosis Acute
[2017-03-18 08:18] VITALS: RESP 14; O2SAT 95
[2017-03-18] MEDS: GABAPENTIN 300 MG CAP PO SCH (08:56)
[2017-03-18] MEDS ORDERED: PANTOPRAZOLE SODIUM 40 MG TAB PO SCH (09:00)
[2017-03-18 12:23] VITALS: BP 125/70; PULSE 69; TEMP 98.4
[2017-03-18] MEDS ORDERED: IOPAMIDOL (ISOVUE-M 300) 15 ML VIAL IV ONE (13:12)
[2017-03-18] MEDS ORDERED: TRIAMCINOLONE ACETONIDE 200 MG/5 ML MDV IM ONE (13:12)
[2017-03-18] MEDS: DORZOLAMIDE 2% OPTH DROPS LEFTEYE SCH (13:44)
== END 2017-03-18 15:07 | disposition home or self-care (01) ==
LOC: INTOOBSV 15:58 → F3N 18:23
PROVIDERS: ADMIT Neurological Surgery; ATTEND Neurological Surgery
PROC: 3E0S33Z Introduction of Anti-inflammatory into Epidural Space, Percutaneous Approach (ICD-10-PCS; principal; 2017-03-18)
PROC: 3E0S3BZ Introduction of Anesthetic Agent into Epidural Space, Percutaneous Approach (ICD-10-PCS; principal; 2017-03-18)
DX: M47.26 Other spondylosis with radiculopathy, lumbar region (principal); Z98.1 Arthrodesis status; K21.9 Gastro-esophageal reflux disease without esophagitis; Z96.653 Presence of artificial knee joint, bilateral
CPT/HCPCS: 64483; 97161; G0378; J1170; J3301; Q9967; 96374

== ENCOUNTER 2017-03-27 13:29 | Inpatient (IN) | payer OTHER ==
[~2017-03-27 13:29] MED LIST: BACITRACIN 50,000 UNITS/10 ML SYR IRR ONE; BUPIVACAINE/EPI 0.25% 30 ML SDV ONE; THROMBIN (BOVINE) 5,000 UNIT VIAL TP ONE
[2017-03-27] MEDS ORDERED: LIDOCAINE 1% 2 ML INJ ONE (14:13)
[2017-03-27] MEDS ORDERED: ceFAZolin 2 GM/DEXTROSE 100 ML IV ONE (14:30)
[2017-03-27] MEDS ORDERED: CHLORHEXIDINE GLUC HIBICLENS 118 ML BTL TP ONE (14:30)
[2017-03-27] MEDS ORDERED: SUGAMMADEX SODIUM 200 MG/2 ML VIAL IVP ONE (14:59)
[2017-03-27] MEDS ORDERED: DEXAMETHASONE 4 MG/ML VIAL ONE (14:59)
[2017-03-27] MEDS ORDERED: ROCURONIUM 50 MG/5 ML VIAL ONE (14:59)
[2017-03-27] MEDS ORDERED: HYDROmorphONE/DILAUDID 2 MG/ML INJ ONE (14:59)
[2017-03-27] MEDS ORDERED: LIDOCAINE 2% 100 MG/5 ML SYR ONE (14:59)
[2017-03-27] MEDS ORDERED: ONDANSETRON 4 MG/2 ML VIAL ONE (14:59)
[2017-03-27] MEDS ORDERED: fentaNYL 100 MCG/2 ML INJ ONE ×3 (14:59→23:04)
[2017-03-27] MEDS ORDERED: PROPOFOL 200 MG/20 ML VIAL ONE (15:00)
[2017-03-27] MEDS ORDERED: REMIFENTANIL HCL 1 MG VIAL ONE ×2 (15:19→19:10)
[2017-03-27] MEDS ORDERED: PROPOFOL/EMULSION 500 MG/50 ML BOTTLE IV ONE ×2 (15:19→19:10)
[2017-03-27] MEDS ORDERED: ACETAMINOPHEN 650 MG PO PRN (15:42)
[2017-03-27] MEDS ORDERED: NALOXONE HCL 0.4 MG/ML INJ IVP PRN (15:43)
[2017-03-27] MEDS ORDERED: LACTULOSE 20 GM/30 ML UDCUP PO PRN (15:43)
[2017-03-27] MEDS ORDERED: diphenhydrAMINE 25 MG CAP PO PRN (15:43)
[2017-03-27] MEDS ORDERED: TEMAZEPAM 15 MG CAP PO PRN (15:43)
[2017-03-27] MEDS ORDERED: MAGNESIUM HYDROXIDE 30 ML UDCUP PO PRN (15:43)
[2017-03-27] MEDS ORDERED: DIAZEPAM 10 MG/2 ML SYR IVP PRN (15:43)
[2017-03-27] MEDS ORDERED: ONDANSETRON 4 MG/2 ML VIAL IVP PRN (15:43)
[2017-03-27] MEDS ORDERED: BISACODYL 10 MG SUPP PR PRN (15:43)
[2017-03-27] MEDS ORDERED: METHOCARBAMOL 750 MG TAB PO PRN (15:43)
[2017-03-27] MEDS ORDERED: POLYETHYLENE GLYCOL 3350 17 GM PKT PO PRN (15:43)
[2017-03-27] MEDS ORDERED: HYDROmorphONE/DILAUDID 6 MG/30 ML PCA IV PRN (15:43)
[2017-03-27] MEDS ORDERED: NS W/ 20 KCl/L 1,000 ML IV SCH (15:45)
[2017-03-27] MEDS ORDERED: epHEDrine SULFATE 10 MG/ML SYR ONE (15:52)
[2017-03-27] MEDS ORDERED: BACITRACIN 50,000 UNITS/10 ML SYR IRR ONE (20:10)
[2017-03-27] MEDS ORDERED: VANCOMYCIN 500 MG/10 ML VIAL IV ONE ×2 (20:20)
[2017-03-27] MEDS ORDERED: VANCOMYCIN 1 GM VIAL IV ONE (20:20)
[2017-03-27] MEDS ORDERED: DORZOLAMIDE 2% OPTH DROPS LEFTEYE SCH (21:00)
[2017-03-27] MEDS ORDERED: FAMOTIDINE 20 MG/NACL 50 ML IV SCH (21:00)
--- NOTE | 2017-03-27 21:52 | NEUSURGPN ---
Date of Surgery: 03/27/17 Post Op Day: 0 Assessment/Plan: Post Op Visit: S: Awake and alert. NAD. Pt with expected lower back pain O: AFVSS/PERRLA/EOMI no droop CN 2-12 grossly intact +lt touch 5/5 BUE/BLE = CDI CHRISTA in place A/P: 71 yo male that is s/p TLIF at L2/3 with re-exploration of right L5/S1 with +gram cocci of hardware-under crosslink -pt with expected lower back pain -brace when out of bed -spoke with Dr Norton and will see pt in am -pt seen by Dr Mayo as well -call with any questions or concerns Neurosurgery Physical Exam - Vitals, I&O, Labs Microbiology 03/27/17 16:46 Gram Stain - Final Back - Tissue 03/27/17 16:46 Gram Stain - Final Back - Tissue 03/27/17 16:46 Mycobacterial Smear (MASSIEL) - Final Back - Tissue Mycobacterial Culture - Final 03/27/17 16:46 Mycobacterial Smear (MASSIEL) - Final Back - Tissue Mycobacterial Culture - Final ICD10 Worksheet Patient Problems: Problems Problem Status Onset Wound infection complicating hardware Acute Arthrodesis status Acute Back pain Acute Lumbar radiculitis Acute Lumbar radiculopathy Acute Lumbar stenosis Acute - ICD10 Problem Qualifiers (1) Wound infection complicating hardware Qualifiers: Encounter type: E
[2017-03-27] MEDS ORDERED: HYDROmorphONE/DILAUDID 1 MG/ML SYR ONE (22:22)
[2017-03-27] MEDS ORDERED: DIAZEPAM 10 MG/2 ML SYR ONE (22:39)
[2017-03-27] MEDS: GABAPENTIN 300 MG CAP PO SCH ×2 (23:22→23:47)
[2017-03-27] MEDS: traMADol 50 MG TAB PO SCH (23:22)
[2017-03-27] MEDS: CALCIUM CARBONATE 500 MG CHEWABLE TAB PO SCH (23:47)
[2017-03-27] MEDS: morphINE SR 15 MG TAB PO SCH (23:47)
[2017-03-27] MEDS: FAMOTIDINE 20 MG TAB PO SCH (23:48)
[2017-03-27] MEDS: SENNOSIDES/DOCUSATE SODIUM TAB PO SCH (23:48)
[2017-03-27] MEDS: oxyCODONE IR 5 MG TAB PO SCH (23:48)
[2017-03-27] MEDS: TRAVOPROST Z 0.004% 2.5 ML OPHT.BTL LEFTEYE SCH (23:48)
[2017-03-27] MEDS: HYDROmorphONE/DILAUDID 1 MG/ML SYR IVP PRN (23:49)
[2017-03-27] MEDS: TIMOLOL OPTH LEFTEYE SCH (23:53)
[2017-03-27] MEDS: DORZOLAMIDE LEFTEYE SCH (23:53)
[2017-03-28] MEDS: HYDROmorphONE/DILAUDID 1 MG/ML SYR IVP PRN (02:16)
[2017-03-28] MEDS: oxyCODONE IR 5 MG TAB PO SCH ×3 (02:17→21:38)
[2017-03-28] MEDS: DIAZEPAM 5 MG TAB PO PRN ×2 (03:30→21:38)
--- NOTE | 2017-03-28 04:03 | GOP ---
[f rep st] OPERATIVE REPORT DATE OF OPERATION: 03/27/2017 SURGEON: Francesco Mayo MD LOOP PULLER: Mekhi Schilling PA-C. 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 POSTOPERATIVE DIAGNOSIS: Confirmed both adjacent segment disease and spinal stenosis at L2-3 with c ollapse of the hardware at L5-S1 and the right L5 radiculopathy. PROCEDURE PERFORMED: Exploration of spinal fusion, removal of posterior segmental instrumentation L 3 down to S1. L4 screws were allowed to remain (10900), spinal stereotaxy, posterior segmental inst rumentation at L2, L3, L4, L5, S1 and S2. Posterolateral intervertebral arthrodesis L2-3 (12070). Placement of biomechanical intervertebral device L2-3 (88611), right L5-S1 facetectomy and trans fac et decompression of the neural foramen redo (74595. Revision posterolateral arthrodesis only at L5- S1 (62506). Microscope, same incision bone graft harvest. FINDINGS: ESTIMATED BLOOD LOSS: 500 cc. INDICATIONS: The patient is a mature male who underwent a successful L3-S1 fusion in November of s year and 1 month ago about 3 months after surgery he had a sudden onset of terrible pain down the right leg. He had both anterior thigh pain and terrible pain down the right leg in an L5-type distr ibution on the top of the foot. There are really 2 apparent nerves involved and repeat MRI was done demonstrating severe stenosis above his fusion at L2-3 where he had changes on prior MRIs, but this had clearly progressed from his preop MRI, but there was also severe collapse of the right L5-S1 ne ural foramen which had been thoroughly decompressed and opened when his spondylolisthesis at L5-S1 h ad been reduced with a prior surgery. It is unclear to me what the issue was, but naturally pseudar throsis was a consideration, although it is really too early for such a diagnosis. I was concerned that he had lost fixation at L5-S1. I suggested exploring this and looking into it further. We dis cussed the possibility of ALIF surgery and this case was reviewed with my partner who felt that an a ttempt at a posterior reduction should once again be tried prior to going to ALIF because of the ronel ure of ALIF surgery would probably require a [id number]-[id number]-ulbg approach and we wanted to try to avoid this. The patient understood that this may in fact fail and that he may ultimately have to undergo a n ALIF to decompress the right L5 nerve root, but we wanted to try this approach first. He knew the re was risk of adjacent segment disease, screw and hardware malposition, malfunction, bleeding, nerv e injury infection, spinal fluid leak, and he wanted to proceed. DESCRIPTION OF PROCEDURE: Patient was taken to the operating room and placed in a supine position. General anesthesia was begun. He was flipped prone onto the Lucio table. Care was taken to pad all points of contact. His back was sterilely prepped and draped in the usual fashion. A localizin g x-ray was taken. We made a midline exposure exposing the prior incision and extending it rostrall y and caudally by about 6 cm in both directions. The subcutaneous tissue was dissected using a plas ma blade down through the fascia and subperiosteal dissection was made down the lamina of L2, the la bennie of L3. We exposed the prior hardware at L3, L4, L5, S1. We inspected the hardware and on the patient's right-hand side the tulips at L5 and S1. While the cap screws were fully engaged in the T ulip, the Tulip actually itself could wobble on the terry. There was motion between the two of them a nd the terry. These were the only 2 screws where this was discovered and this naturally is not a comm on finding. We did remove all the cap screws, as well as the crosslink. As we removed the crosslin k, there was underneath it some yellow-type material that could be consistent with pus. It was an u nusual finding. This was the only location anywhere in the exposure where any unusual fluid was see n and it was focal and we swabbed it and sent it to the lab. This, however, did return with a posit terrell Gram stain with gram-positive cocci, and Infectious Disease was notified after the surgery. We c ontinued on with the surgery. We removed the right L5 and S1 screws and they actually had good bony purchase. On the left-hand side, there had been no abnormality in the Tulip, but the left S1 screw had wallowed out that hole and was somewhat loose. The left L5 screw was fine. Both of those were removed. We also went ahead and removed the bilateral L3 screws as we had intended to extend up to L2 and wanted to inspect these to ensure that the upper screws were in good shape and there was no problem with those. We tested Stealth reference frame and then using frameless Stealth stereotaxy, we placed pedicle screws bilaterally at S2 as an additional point of fixation for the sacrum. We th en placed a new trajectory 6.5 mm screw on the left in the left S1 pedicle. We did not utilize the prior trajectory at all. We used a 7.5 mm screw on the left at L5 and there was excellent bony purc hase of both of those screws. On the right, we did put a right S2 screw in. We used a 7.5 mm screw on the right at L5 and S1 with the same length that we had used before and there was excellent bony purchase of both of those screws. The prior screw holes were intact and had good bony purchase. W e then inspected all the screws, performed an O-arm spin and all of these were in excellent position . We had to do another O-arm spin to place pedicle screws bilaterally at L2. We used a 5.5 mm scre w on the right at L2, and a 6.5 mm screw on the left at L2. They both stimulated at acceptable level s and they were in excellent position after confirming these with an O-arm spin. We then took a terry about 155 to 160 mm in length, cut them and bent them to capture all the screws from L2 to S2 and f inal tightened the cap screws first on the left and then going to the right. This reduced L5 up to the terry and as we distracted at L5 and S1, when we had released our distraction even though we had m aximally torqued the set screw, it would release from the terry and we could not quite understand this mechanism. We tried L5 then distracted S1. We then tried S1 and distracted at L5 and they kept re leasing from the terry. This is an unusual circumstance consistent possibly with what we had found upo n hardware removal. It became clear to me that something unique about the geometry was present here and our typical top-loading distraction system was likely tilting the tulips and not allowing perfe ct terry capture. We then took a bottom terry distractor, one that goes ventral to the terry, and distrac graham off the bottom of the tulips themselves and used this to achieve distraction and it seemed to so lve the problem. We torqued both of the tulips to inset screws to company specs between L5 and S1 a nd this maintained fixation. It did not let go of the terry using this technique. All the other scre ws were torqued to company specification. There was good terry purchase and I was happy with this. We then removed all the soft tissue and bone at L2 and L3, harvested the L3 spinous process for autolo gous grafting purposes, harvested the inferior L2 spinous process for autologous grafting purposes. We irrigated throughout the surgery large amounts of antibiotic saline. We performed an L2-3 rell ectomy, opened the ligamentum flavum and under the microscope decompressed the L2-3 segment bilatera lly. There was severe stenosis. We prepared for TLIF from the right side at L2-3 and removed the r ight L2-3 facet joint complex. Prior to actually doing the TLIF, we went down to L5-S1 and we perfo rmed a right L5-S1 facetectomy. There was early bony matrix and bridging going between L5 and S1, b ut there was not bone effusion. There was soft material and bone reaching across this from L5 and S 1, but I do not think bony union had occurred. We decompressed through the facet joint on the right at L5 and S1 and worked our way down the L5 pedicle and out in the neural foramina where we could p ass a ball-tip probe following the trajectory of the L5 root out into the neural foramen and even in to the pelvis. There was really no evidence now of any compressive lesion here whatsoever and x-ray s demonstrated really dramatic opening of the neural foramen at L5-S1 with our distraction at L5-S1. A nice foraminal decompression was performed, however. The nerve was completely free and clear. The actual structure of the nerve was not well visualized as it was encased in scar, but we did stim the area of the nerve and got some low threshold stims and this entire area was completely decompre ssed. We were able to pass a ball-tip probe down into the prior disk space at L5-S1 and shot AP and lateral x-rays confirming the location of this just lateral to our intervertebral device at L5-S1. This area though was nicely decompressed. We then went to L2-3. We re-irrigated again with large amounts of antibiotic saline, incised the L2-3 disk, removed the disk and the cartilaginous endplate s. We sized for a 7 x 28 mm expandable device. We placed bony autograft into the disk space and a BMP sponge. We inserted the 7 x 28 mm device under fluoroscopic guidance. We expanded it. We then decorticated all remaining bone at L2-3, as well as bilaterally at L5-S1, and then placed bony auto graft posterolaterally bilaterally and BMP posterolaterally bilaterally from L2-S1. We placed a sub fascial drain. We irrigated with more antibiotic saline solution and then closed the incision in mu ltiple layers using Vicryl sutures. A running PDS was placed in the skin itself. The patient was r eversed from anesthesia, extubated, and transferred to the recovery room in stable condition. There were no complications. Infectious Disease was called after the surgery for advice on antibiotics, but we did not feel they needed to see the patient until the next day. COMPLICATIONS: None. /[id number]/MODL
[2017-03-28 05:40] LABS: % IMMATURE GRANULYOCYTES 1.2 % (0.0-1.1); ADD DIFF? NO; ADD MORPH? NO; ADD SCAN? NO; ATYPICAL LYMPHOCYTE FLAG 0 (0-99); FRAGMENT RBC FLAG 0 (0-99); HEMATOCRIT 33.9 % (40.0-51.0); HEMOGLOBIN 11.7 g/dL (13.7-17.5); LEFT SHIFT FLG 20 (0-99); LIPEMIA HEMOLYSIS FLAG 90 (0-99); MEAN CELL HEMOGLOBIN 30.7 pg (27.9-34.1); MEAN CELL HEMOGLOBIN CONCENTR. 34.5 g/dL (32.4-36.7); MEAN PLATELET VOLUME 9.3 fL (8.7-11.7); PLATELET CLUMPS FLAG 0 (0-99); PLATELET COUNT 214 10^3/uL (150-400); RED BLOOD CELL COUNT 3.81 10^6/uL (4.40-6.38); RED CELL DISTRIBUTION WIDTH 13.8 % (11.5-15.2)
[2017-03-28 05:47] LABS: ANION GAP 7 mEq/L (8-16); CALCIUM 8.7 mg/dL (8.5-10.4); CARBON DIOXIDE 24 mEq/l (22-31); CHLORIDE 102 mEq/L (97-110); CREATININE 0.8 mg/dL (0.7-1.3); GLOMERULAR FILTRATION RATE > 60; GLUCOSE 145 mg/dL (70-100); POTASSIUM 4.6 mEq/L (3.5-5.2); SODIUM 133 mEq/L (134-144)
--- NOTE | 2017-03-28 07:31 | NEUSURGPN ---
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 NAD. Eating/drinking and voiding. No f/c/n/v/d. No gaston/neck/ chest/abd or gu complaints. Objective: AFVSS/PERRLA/EOMI no droop CN 2-12 grossly intact +lt touch 5/5 BUE/BLE = CDI CHRISTA in place Neuro Check Frequency: per routine Urinary Catheter in Place: No Catheter Insertion Date: 03/27/17 - Physician Discussed Patient with Dr.: Gael Patient Seen by : Gael Neurosurgery Physical Exam - Vitals, I&O, Labs I and O 03/27/17 03/28/17 03/29/17 05:59 05:59 05:59 Intake Total 4604 Output Total 1785 Balance 2819 Weight 79.379 kg Intake: Oral (ml) 470 IV Intake (ml) 2600 IV Infused (ml) 550 NS W/ 20 KCl/L 1,000 ml @ 450 75 mls/hr IV CONT DINORA Rx #:[id number] ceFAZolin 2 GM/DEXTROSE 100 100 ml @ 200 mls/hr IV ONCALL ONE Rx#:[id number] Tube Feeding (ml) 564 Tube Flush (ml) 420 Output: Urine (ml) 750 Catheter 750 Estimated Blood Loss (ml) 500 Wound Drainage (ml) 535 Right Back Lucio Starkey 535 Other: Post Void Residual Scan Volume (ml) Catheter 180 Microbiology 03/27/17 16:46 Gram Stain - Final Back - Tissue 03/27/17 16:46 Gram Stain - Final Back - Tissue 03/27/17 16:46 Mycobacterial Smear (MASSIEL) - Final Back - Tissue Mycobacterial Culture - Final 03/27/17 16:46 Mycobacterial Smear (MASSIEL) - Final Back - Tissue Mycobacterial Culture - Final Vital Signs Temp Pulse Resp BP Pulse Ox 36.9 C 70 18 117/78 96 03/28/17 05:22 03/28/17 05:22 03/28/17 05:22 03/28/17 05:22 03/28/17 05:22 Laboratory Results 03/28/17 05:14 03/28/17 05:14 ICD10 Worksheet Patient Problems: Problems Problem Status Onset Wound infection complicating hardware Acute Arthrodesis status Acute Back pain Acute Lumbar radiculitis Acute Lumbar radiculopathy Acute Lumbar stenosis Acute - ICD10 Problem Qualifiers (1) Wound infection complicating hardware Qualifiers: Encounter type: E
[2017-03-28] MEDS: oxyCODONE IR 5 MG TAB PO PRN ×2 (07:51→19:31)
[2017-03-28] MEDS: SENNOSIDES/DOCUSATE SODIUM TAB PO SCH ×2 (10:13→21:38)
[2017-03-28] MEDS: traMADol 50 MG TAB PO SCH ×2 (10:13→15:39)
[2017-03-28] MEDS: PANTOPRAZOLE SODIUM 40 MG TAB PO SCH (10:14)
[2017-03-28] MEDS: GABAPENTIN 300 MG CAP PO SCH ×3 (10:14→21:38)
[2017-03-28] MEDS: DORZOLAMIDE LEFTEYE SCH ×2 (10:15→21:37)
[2017-03-28] MEDS: TIMOLOL OPTH LEFTEYE SCH ×2 (10:15→21:37)
[2017-03-28] MEDS: FAMOTIDINE 20 MG TAB PO SCH ×2 (10:18→21:38)
[2017-03-28] MEDS: morphINE SR 15 MG TAB PO SCH ×2 (10:18→21:38)
[2017-03-28] MEDS: VANCOMYCIN 1.5 GM in D5W 250 ML IV SCH ×2 (10:21→21:47)
--- NOTE | 2017-03-28 10:54 | GCON ---
[f rep st] CONSULTATION INFECTIOUS DISEASES CONSULTATION DATE OF CONSULTATION: 03/28/2017 REFERRING PHYSICIAN: Francesco Mayo MD REASON FOR CONSULTATION: Postoperative back infection. HISTORY OF PRESENT ILLNESS: Patient is a 71-year-old male with a past medical history of lumbar ruthy nosis and spondylolisthesis which required arthrodesis with posterior segmental instrumentation of L 3-S1 on 11/27/2016, who I am asked to see in consultation for postoperative back infection. The pat ient describes having an uncomplicated clinical course post procedure in November. Subsequently, in February, he developed recurrent back pain with radicular pain involving the right side. This required that he undergo 2 steroid injections. He did not have significant relief of pain with the steroid injections and therefore had repeat operative management yesterday. Intraoperatively, the patient w as noted to have loosening of hardware and as the crosslink was removed there was some yellowish mat erial underneath it concerning for purulence. This was the only area where this was noted. Gram st ain of this material was obtained and returned showing rare gram-positive cocci. Based on the findi ng, Dr. Norton was notified and recommended initiation of vancomycin. Preprocedure, the patient not es that he has had night sweats over the last approximately week. He has not had fevers, chills or malaise. No nausea, vomiting or diarrhea. No bowel/bladder incontinence or retention. Radicular p ain as outlined above. He did not note any erythema or drainage from his surgical incision. Based on the above findings, I am now asked to assist in his ongoing management. PAST MEDICAL HISTORY: Spondylolisthesis as outlined above, Staph infection of a tibial fracture in 1994 which required 6 weeks of IV antibiotics; patient is unclear if he had MRSA but does describe t reatment with vancomycin. Patient was treated for UTI in November with Bactrim; patient notes that ethel francis had no symptoms at that point in time but had a screening urinalysis and culture done by his physi elaine postoperatively. PAST SURGICAL HISTORY: As above, bilateral knee replacements, tibial surgery in the 1994. CURRENT MEDICATIONS: Vancomycin 1.5 g IV q.12 hours, Protonix 40 mg p.o. daily, tramadol 50 mg p.o. b.i.d., Senokot b.i.d., Oxy IR as needed for pain, MS Contin 15 mg p.o. b.i.d., Robaxin 750 mg p.o. q.i.d. as needed, Dilaudid as needed, Pepcid 20 mg p.o. b.i.d., Neurontin 300 mg p.o. t.i.d., Loven ox 40 mg subcu daily, Tums 1000 mg p.o. at bedtime. ALLERGIES: Penicillin associated with diffuse pruritus; has tolerated cephalexin in the past withou t difficulty and also received cefazolin perioperatively. SOCIAL HISTORY: Patient does not smoke. He drinks 2 alcoholic beverages daily. No drug use. He l judy in [place]. He is retired. FAMILY HISTORY: Mother with diabetes at advanced age. REVIEW OF SYSTEMS: Outside that noted in the HPI, the remainder of a 10-system review is unremarkab le. PHYSICAL EXAMINATION: VITAL SIGNS: Temperature 36.7, heart rate 81, respiratory rate 14, blood pre ssure 121/77, oxygen saturation 97% on 2 L. GENERAL: Patient is well nourished, well developed in no acute distress. He appears nontoxic. HEENT: There is no scleral icterus, conjunctival injectio n or conjunctival petechiae. Oropharynx is clear without lesions. Dentition is in fair repair. Th ere is no nasal discharge. There is no tenderness over the frontal, maxillary, or mastoid area. NE CK: Supple without lymphadenopathy or palpable thyromegaly. CHEST: Clear to auscultation bilatera lly without adventitious sounds. The respiratory effort is normal. CARDIOVASCULAR: Regular rate a nd rhythm without murmurs, gallops or rubs. ABDOMEN: Soft, nontender, nondistended. There is no p alpable organomegaly. Bowel sounds are present. MUSCULOSKELETAL: There is no cyanosis, clubbing o r edema. BACK: Surgical site is dressed postoperatively with CHRISTA drain showing bloody output. NEUR OLOGIC: Patient is alert and interacts appropriately with examiner. Cranial nerves 2-12 are grossl y intact. Sensation is grossly intact. Motor strength is 5/5 bilaterally in the lower extremities. LYMPHATICS: There are no cervical or supraclavicular nodes. LABORATORY DATA: White blood cell count 8.6, hematocrit 33.9, platelets 214, neutrophils 82%. Seru m creatinine is 0.8. Gram stain from 1 operative specimen showing rare GPCs with culture pending. Second Gram stain shows white blood cells but no organisms with culture pending. IMPRESSION: Probable postoperative back infection. Operative findings show loosening of hardware a nd possible purulent material with positive Gram stain consistent with postoperative infection. Mos t likely, this will be due to coagulase-negative staphylococcus or other less virulent pathogens giv en lack of significant clinical illness. Staphylococcus aureus is a consideration although more com monly associated with more overt constitutional symptom. Other organisms such as enterococci, micro aerophilic, streptococci, or anaerobic tyra also of consideration. Given these findings, I anticip ate patient will need 8-week course of IV antibiotic therapy followed by suppressive antibiotics in the setting of hardware. RECOMMENDATIONS: 1. Agree with empiric vancomycin 1.5 g IV q.12 hours. 2. Follow up culture data as available tomorrow. Based on culture findings, I anticipate we will p roceed with PICC line tomorrow for outpatient IV antibiotics. 3. We will check baseline LFTs and C-reactive protein. 4. We will notify case management regarding discharge planning for outpatient IV antibiotic therapy . Thank you for this consultation. We will continue to follow patient with you. /[id number]/MODL
[2017-03-28] MEDS: ONDANSETRON DISINTEGRATING 4 MG TAB PO PRN (21:36)
[2017-03-28] MEDS: TRAVOPROST Z 0.004% 2.5 ML OPHT.BTL LEFTEYE SCH (21:37)
[2017-03-28] MEDS: CALCIUM CARBONATE 500 MG CHEWABLE TAB PO SCH (21:37)
[2017-03-29] MEDS: ONDANSETRON DISINTEGRATING 4 MG TAB PO PRN ×2 (00:38→05:24)
[2017-03-29] MEDS: ACETAMINOPHEN 325 MG TAB PO PRN ×4 (00:41→21:17)
[2017-03-29] MEDS: oxyCODONE IR 5 MG TAB PO SCH ×3 (00:46→21:13)
[2017-03-29 05:45] LABS: ALANINE AMINOTRANSFERASE 21 IU/L (21-72); ALBUMIN 2.6 g/dL (3.5-5.0); ALKALINE PHOSPHATASE 61 IU/L (38-126); ANION GAP 3 mEq/L (8-16); ASPARTATE AMINOTRANSFERASE 19 IU/L (17-59); BILIRUBIN,TOTAL 0.9 mg/dL (0.1-1.4); C-REACTIVE PROTEIN 68.9 mg/L (<10.0); CALCIUM 8.2 mg/dL (8.5-10.4); CARBON DIOXIDE 24 mEq/l (22-31); CHLORIDE 100 mEq/L (97-110); CREATININE 0.8 mg/dL (0.7-1.3); GLOMERULAR FILTRATION RATE > 60; GLUCOSE 129 mg/dL (70-100); POTASSIUM 4.2 mEq/L (3.5-5.2); SODIUM 127 mEq/L (134-144); TOTAL PROTEIN 4.9 g/dL (6.3-8.2)
[2017-03-29] MEDS: SENNOSIDES/DOCUSATE SODIUM TAB PO SCH ×2 (08:24→21:13)
[2017-03-29] MEDS: GABAPENTIN 300 MG CAP PO SCH ×3 (08:24→21:11)
[2017-03-29] MEDS: FAMOTIDINE 20 MG TAB PO SCH ×2 (08:24→21:11)
[2017-03-29] MEDS: PANTOPRAZOLE SODIUM 40 MG TAB PO SCH (08:24)
[2017-03-29] MEDS: TIMOLOL OPTH LEFTEYE SCH ×2 (08:26→21:12)
[2017-03-29] MEDS: morphINE SR 15 MG TAB PO SCH ×2 (08:26→21:12)
[2017-03-29] MEDS: DORZOLAMIDE LEFTEYE SCH ×2 (08:26→21:12)
--- NOTE | 2017-03-29 09:24 | SOAPPROG ---
SOAP Progress Note Assessment/Plan: Assessment: doing very well appreciate the help of ID. has never shown systemic signs of infection but we remain vigilant regarding our operative findings. remove drain today anticipate discharge likely friday but we will reassess tmrw. xrays look great. Plan: 03/29/17 09:21 Subjective: doing a bit better now after some change in the pain meds. steering towards tylenol now over narcs. right leg is better than preop. Objective: Vital Signs Temp Pulse Resp BP Pulse Ox 36.9 C 79 16 106/64 93 03/29/17 07:48 03/29/17 07:48 03/29/17 07:48 03/29/17 07:48 03/29/17 07:48 Microbiology 03/27/17 16:46 Gram Stain - Final Back - Tissue 03/27/17 16:46 Gram Stain - Final Back - Tissue Laboratory Results 03/28/17 05:14 03/29/17 05:26 03/28/17 03/29/17 03/30/17 05:59 05:59 05:59 Intake Total 4604 1544 Output Total 1785 1670 65 Balance 2819 -126 -65 maew ICD10 Worksheet Patient Problems: Problems Problem Status Onset Wound infection complicating hardware Acute Arthrodesis status Acute Back pain Acute Lumbar radiculitis Acute Lumbar radiculopathy Acute Lumbar stenosis Acute
[2017-03-29] MEDS: traMADol 50 MG TAB PO SCH ×2 (09:59→15:48)
[2017-03-29] MEDS: VANCOMYCIN 1.5 GM in D5W 250 ML IV SCH ×2 (10:00→21:14)
[2017-03-29] MEDS ORDERED: ALTEPLASE 2 MG VIAL IVP PRN (15:51)
--- NOTE | 2017-03-29 16:26 | PCMIDPN ---
Assessment/Plan: Assessment/Plan: * Probable postoperative back infection: Cultures are currently pending with suggestion of early growth possibly compatible with P. acnes. Continue vancomycin pending additional culture data. If organism identified as P. acnes , plan treatment with ceftriaxone daily. Will place PICC line in anticipation of IV antibiotic course of therapy. 03/29/17 16:23 Subjective: Patient feels better. Pain overall is improved. Objective: Vital Signs Temp Pulse Resp BP Pulse Ox 38.0 C 76 18 120/75 92 03/29/17 16:00 03/29/17 16:00 03/29/17 16:00 03/29/17 16:00 03/29/17 16:00 Microbiology 03/27/17 16:46 Gram Stain - Final Back - Tissue 03/27/17 16:46 Gram Stain - Final Back - Tissue Laboratory Results 03/28/17 05:14 03/29/17 05:26 03/28/17 03/29/17 03/30/17 05:59 05:59 05:59 Intake Total 4604 1544 Output Total 1785 1670 65 Balance 2819 -126 -65 C-Reactive Protein 68.9 mg/L (<10.0) H 03/29/17 05:26 Vancomycin # 2 Back cultures pending Laboratory Tests 03/28/17 03/29/17 10:00 05:26 C-Reactive Protein 68.9 H Vancomycin Trough 7.4 - Physical Exam General Appearance: alert, no apparent distress EENT: No scleral icterus Cardiac/Chest: regular rate, rhythm, No systolic murmur Abdomen: non-tender Back: other (Incision intact without erythema or drainage) ICD10 Worksheet Patient Problems: Problems Problem Status Onset Wound infection complicating hardware Acute Arthrodesis status Acute Back pain Acute Lumbar radiculitis Acute Lumbar radiculopathy Acute Lumbar stenosis Acute
[2017-03-29] MEDS: CALCIUM CARBONATE 500 MG CHEWABLE TAB PO SCH (21:11)
[2017-03-29] MEDS: TRAVOPROST Z 0.004% 2.5 ML OPHT.BTL LEFTEYE SCH (21:14)
[2017-03-30] MEDS: oxyCODONE IR 5 MG TAB PO SCH ×4 (02:21→23:24)
[2017-03-30] MEDS: ACETAMINOPHEN 325 MG TAB PO PRN ×2 (04:46→21:11)
[2017-03-30] MEDS: morphINE SR 15 MG TAB PO SCH ×2 (09:03→19:54)
[2017-03-30] MEDS: SENNOSIDES/DOCUSATE SODIUM TAB PO SCH ×2 (09:04→19:55)
[2017-03-30] MEDS: traMADol 50 MG TAB PO SCH ×2 (09:04→16:18)
[2017-03-30] MEDS: GABAPENTIN 300 MG CAP PO SCH ×3 (09:04→21:11)
[2017-03-30] MEDS: PANTOPRAZOLE SODIUM 40 MG TAB PO SCH (09:05)
[2017-03-30] MEDS: DORZOLAMIDE LEFTEYE SCH ×2 (09:05→19:56)
[2017-03-30] MEDS: ENOXAPARIN 40 MG/0.4 ML SYR SC SCH (09:05)
[2017-03-30] MEDS: VANCOMYCIN 1.5 GM in D5W 250 ML IV SCH ×2 (09:05→19:56)
[2017-03-30] MEDS: FAMOTIDINE 20 MG TAB PO SCH ×2 (09:05→19:56)
[2017-03-30] MEDS: TIMOLOL OPTH LEFTEYE SCH ×2 (09:05→19:56)
--- NOTE | 2017-03-30 10:22 | SOAPPROG ---
SOAP Progress Note Assessment/Plan: Assessment: 71 yo male s/p reexploration of right L5/S1 with new TLIF at L2/3 and L2-S1 instrumentation Doing well C+cocci on GS Final cultures still pending Right PICC line in place ID Following ambulatory right leg pain resolved Na from 03/29 is 127, will recheck today Plan: recheck Na today Change dressing PT/OT dispo pending abx and Na level Subjective: awake, alert, feeling fine, right leg pain resolved using only Tramadol and Tylenol Objective: Vital Signs Temp Pulse Resp BP Pulse Ox 37.4 C 92 15 119/72 92 03/30/17 08:02 03/30/17 08:02 03/30/17 08:02 03/30/17 08:02 03/30/17 08:02 Microbiology 03/27/17 16:46 Gram Stain - Final Back - Tissue 03/27/17 16:46 Gram Stain - Final Back - Tissue Laboratory Results 03/28/17 05:14 03/29/17 05:26 03/29/17 03/30/17 03/31/17 05:59 05:59 05:59 Intake Total 1544 1175 Output Total 1670 65 Balance -126 1110 Neuro: MARTIN, sens +LT Incision: CDI ICD10 Worksheet Patient Problems: Problems Problem Status Onset Wound infection complicating hardware Acute Arthrodesis status Acute Back pain Acute Lumbar radiculitis Acute Lumbar radiculopathy Acute Lumbar stenosis Acute
--- NOTE | 2017-03-30 17:27 | PCMIDPN ---
Assessment/Plan: Assessment/Plan: * Probable postoperative back infection: Cultures without growth in laboratory currently. Have asked lab to hold longer to assess for P. acnes. Given positive Gram stain and operative findings, think will require treatment for postoperative infection despite negative cultures. Will therefore proceed with plans for vancomycin twice daily. Probable discharge tomorrow after a.m. vancomycin dose with continued therapy via home health. If were to grow P acne subsequently, would plan to change therapy to ceftriaxone once daily. Side effects of vancomycin including potential for nephrotoxicity or allergic reactions were discussed with patient today. Risk and benefit of PICC line reviewed. Check labs including vancomycin trough in a.m. prior to discharge. 03/30/17 17:24 03/30/17 17:26 Subjective: Patient without specific complaints. Eager to go home. Objective: Vital Signs Temp Pulse Resp BP Pulse Ox 37.2 C 78 15 120/76 94 03/30/17 16:31 03/30/17 16:31 03/30/17 16:31 03/30/17 16:31 03/30/17 16:31 Microbiology 03/27/17 16:46 Gram Stain - Final Back - Tissue 03/27/17 16:46 Gram Stain - Final Back - Tissue Laboratory Results 03/28/17 05:14 03/30/17 12:00 03/29/17 03/30/17 03/31/17 05:59 05:59 05:59 Intake Total 1544 1175 1500 Output Total 1670 65 500 Balance -126 1110 1000 C-Reactive Protein 68.9 mg/L (<10.0) H 03/29/17 05:26 Vancomycin # 3 Operative cultures no growth to date - Physical Exam General Appearance: alert, no apparent distress Abdomen: non-tender, No distended Back: other (Incision intact without erythema or drainage.) - Line/s RUE PICC Lines: No drainage, No erythema ICD10 Worksheet Patient Problems: Problems Problem Status Onset Wound infection complicating hardware Acute Arthrodesis status Acute Back pain Acute Lumbar radiculitis Acute Lumbar radiculopathy Acute Lumbar stenosis Acute
--- NOTE | 2017-03-30 17:33 | PDIAF ---
- Diagnosis Diagnosis: Postoperative back infection Code Status: Full Code - Medication Management Discharge Medications: Medications to Continue on Transfer Dorzolamide 2% [Trusopt 2% (*)] 1 drop LEFTEYE BID 10/21/16 [Last Taken 06:00] Omeprazole [Prilosec 20 mg] 20 mg PO DAILY 10/21/16 [Last Taken 03/26/17 06:00] Travoprost Z 0.004% [Travatan Z 0.004% (*)] 1 drops LEFTEYE HS 10/21/16 [Last Taken 03/16/17] Calcium Carbonate [Tums 500MG (*)] 1,000 mg PO HS 03/17/17 [Last Taken 03/25/17] traMADol [Ultram 50 mg (*)] 50 mg PO BID@03/17/17 [Last Taken 03/27/17 10: 00] Gabapentin [Neurontin 300 MG (*)] 300 mg PO TID #90 cap 03/18/17 [Last Taken 03/10 06:00] Acetaminophen [Tylenol Arthritis] 650 mg PO TID PRN 03/27/17 [Last Taken 06:00] Multivitamins [Multivitamin (*)] 1 tab PO DAILY 03/27/17 [Last Taken 03/20/17] oxyCODONE IR [Oxycodone Ir (*)] 5 mg PO TID@,,03/27/17 [Last Taken 06:00] Hand Spring Repairer Antibiotics: Vancomycin 1.5 g IV q.12 hours Retirement Antibiotic Stop Date: 05/22/17 Discharge Medications: Refer to the Discharge Home Medication list for PRN reason. PICC Care - Routine: Yes - Orders Services needed: Home [facility] Care Face to Face: I certify that this patient was under my care and that I had the required [id number] encounter meeting the encounter requirements on the discharge day. My findings support the fact that the patient is homebound as defined in CMS Chapter 7 Medicare Benefits Manual 30.1.1, The condition of the patient is such that there exists a normal inability to leave home and consequently, leaving home would require a considerable and taxing effort. - Labs/Radiology CBC Date: 04/03/17 (Weekly Q ) CMP Date: 04/03/17 (Weekly Q ) Creatinine Date: 04/07/17 (Weekly Q Friday) Vanco Trough Date and Time: Weekly Q Friday and Call or Fax Lab and Imaging Results to: Dr. Salcido, - Follow Up Care Current Providers and Referrals: LUIS ANGEL TIWARI [Other]
[2017-03-30] MEDS: SODIUM CHLORIDE 1,000 MG TAB PO SCH (17:45)
[2017-03-30] MEDS: CALCIUM CARBONATE 500 MG CHEWABLE TAB PO SCH (19:55)
[2017-03-30] MEDS: TRAVOPROST Z 0.004% 2.5 ML OPHT.BTL LEFTEYE SCH (19:56)
[2017-03-31 04:36] LABS: % IMMATURE GRANULYOCYTES 1.2 % (0.0-1.1); ABSOLUTE IMMATURE GRANULOCYTES 0.09 10^3/uL (0.00-0.10); ADD DIFF? NO; ADD MORPH? NO; ADD SCAN? NO; ATYPICAL LYMPHOCYTE FLAG 0 (0-99); FRAGMENT RBC FLAG 0 (0-99); HEMATOCRIT 25.5 % (40.0-51.0); HEMOGLOBIN 8.6 g/dL (13.7-17.5); LEFT SHIFT FLG 10 (0-99); LIPEMIA HEMOLYSIS FLAG 80 (0-99); MEAN CELL HEMOGLOBIN 30.8 pg (27.9-34.1); MEAN CELL HEMOGLOBIN CONCENTR. 33.7 g/dL (32.4-36.7); MEAN CELL VOLUME 91.4 fL (81.5-99.8); MEAN PLATELET VOLUME 9.8 fL (8.7-11.7); PLATELET CLUMPS FLAG 0 (0-99); PLATELET COUNT 192 10^3/uL (150-400); RED BLOOD CELL COUNT 2.79 10^6/uL (4.40-6.38); RED CELL DISTRIBUTION WIDTH 13.8 % (11.5-15.2)
[2017-03-31] MEDS: oxyCODONE IR 5 MG TAB PO SCH (04:41)
[2017-03-31 05:08] LABS: ALANINE AMINOTRANSFERASE 25 IU/L (21-72); ALBUMIN 2.6 g/dL (3.5-5.0); ALKALINE PHOSPHATASE 60 IU/L (38-126); ANION GAP 6 mEq/L (8-16); ASPARTATE AMINOTRANSFERASE 17 IU/L (17-59); BILIRUBIN,TOTAL 1.1 mg/dL (0.1-1.4); CALCIUM 8.4 mg/dL (8.5-10.4); CARBON DIOXIDE 24 mEq/l (22-31); CHLORIDE 103 mEq/L (97-110); CREATININE 0.8 mg/dL (0.7-1.3); GLOMERULAR FILTRATION RATE > 60; GLUCOSE 100 mg/dL (70-100); POTASSIUM 4.2 mEq/L (3.5-5.2); SODIUM 133 mEq/L (134-144); TOTAL PROTEIN 4.9 g/dL (6.3-8.2)
--- NOTE | 2017-03-31 07:15 | NEUSURGPN ---
Date of Surgery: 03/27/17 Post Op Day: 4 Assessment/Plan: Assessment: 71 yo male s/p reexploration of right L5/S1 with new TLIF at L2/3 and L2-S1 instrumentation Plan: -doing well -gram+ cocci on GS-no final yet -final cultures still pending -right PICC line in place -ID Following-appreciate input and care -ambulatory -right leg pain resolved -Na from 03/31 is 133-will have pt follow up with PCP for recheck -CDI -PT/OT -dispo pending approval from ID -call with any questions or concerns Subjective: Awake and alert. NAD. Eating/drinking and voiding. No f/c/n/v/d. No other complaints or concerns. Objective: AAO x 3, PERRLA/EOMI no droop CN 2-12 grossly intact +lt touch 03/28 BUE/BLE = CDI Neuro Check Frequency: per routine Urinary Catheter in Place: No Catheter Insertion Date: 03/27/17 - Physician Discussed Patient with : Gael Patient Seen by : Gael Neurosurgery Physical Exam - Vitals, I&O, Labs I and O 03/30/17 03/31/17 04/01/17 05:59 05:59 05:59 Intake Total 1175 2130 Output Total 65 500 Balance 1110 1630 Intake: Oral (ml) 400 1800 IV Infused (ml) 775 330 NS W/ 20 KCl/L 1,000 ml @ 275 70 75 mls/hr IV CONT DINORA Rx #:[id number] Vancomycin 1.5 gm In D5w 500 260 250 ml @ 166.67 mls/hr IV Q12H DIN[facility]A Rx#:[id number] Output: Urine (ml) 500 Toilet 500 Wound Drainage (ml) 65 Right Back Lucio Starkey 65 Other: Intake Quantity Yes Sufficient Number of Voids Toilet 1 2 Number of Stools Toilet 1 1 Microbiology 03/27/17 16:46 Gram Stain - Final Back - Tissue 03/27/17 16:46 Gram Stain - Final Back - Tissue Vital Signs Temp Pulse Resp BP Pulse Ox 36.6 C 64 16 125/71 H 94 03/31/17 03:38 03/31/17 03:38 03/31/17 03:38 03/31/17 03:38 05/08/17 03:38 Laboratory Results 03/31/17 04:30 03/31/17 04:30 ICD10 Worksheet Patient Problems: Problems Problem Status Onset Wound infection complicating hardware Acute Arthrodesis status Acute Back pain Acute Lumbar radiculitis Acute Lumbar radiculopathy Acute Lumbar stenosis Acute - ICD10 Problem Qualifiers (1) Wound infection complicating hardware Qualifiers: Encounter type: E
--- NOTE | 2017-03-31 07:28 | PDIAF ---
- Diagnosis Diagnosis: Postoperative back infection Code Status: Full Code - Medication Management Discharge Medications: Medications to Continue on Transfer Dorzolamide 2% [Trusopt 2% (*)] 1 drop LEFTEYE BID 10/21/16 [Last Taken 06:00] Omeprazole [Prilosec 20 mg] 20 mg PO DAILY 10/21/16 [Last Taken 03/26/17 06:00] Travoprost Z 0.004% [Travatan Z 0.004% (*)] 1 drops LEFTEYE HS 10/21/16 [Last Taken 03/16/17] Calcium Carbonate [Tums 500MG (*)] 1,000 mg PO HS 03/17/17 [Last Taken 03/25/17] Gabapentin [Neurontin 300 MG (*)] 300 mg PO TID #90 cap 03/18/17 [Last Taken 03/10 06:00] Multivitamins [Multivitamin (*)] 1 tab PO DAILY 03/27/17 [Last Taken 03/20/17] Acetaminophen [Tylenol 325mg (*)] 325 - 650 mg PO Q4HRS PRN #0 tab 03/31/17 [ Last Taken Unknown] Alteplase [Cathflo Activase 2 mg (*)] 2 mg IVP PRN PRN #0 vial 03/31/17 [Last Taken Unknown] Methocarbamol [Robaxin 750 mg (*)] 750 mg PO QID PRN #60 tab 03/31/17 [Last Taken Unknown] Sennosides/Docusate Sodium [Senokot-S] 1 - 2 tab PO BID #30 tab 03/31/17 [Last Taken Unknown] Sodium Chloride [Salt Tablet] 1,000 mg PO TIDMEAL #0 tab 03/31/17 [Last Taken Unknown] Vancomycin [Vancomycin (*)] 1.5 gm IV Q12H #0 vial 03/31/17 [Last Taken Unknown] traMADol [Ultram 50 mg (*)] 50 mg PO BID@10,16 #90 tab 03/31/17 [Last Taken Unknown] Penitentiary Antibiotics: Vancomycin 1.5 g IV q.12 hours [employer] [id number] Antibiotic Stop Date: 05/22/17 Discharge Medications: Refer to the Discharge Home Medication list for PRN reason. PICC Care - Routine: Yes - Orders Services needed: Home Long-Term Care Face to Face: I certify that this patient was under my care and that I had the required [id number] encounter meeting the encounter requirements on the discharge day. My findings support the fact that the patient is homebound as defined in CMS Chapter 7 Medicare Benefits Manual 30.1.1, The condition of the patient is such that there exists a normal inability to leave home and consequently, leaving home would require a considerable and taxing effort. Oxygen: to keep O2 sat above 90% Diet Recommendation: no restrictions on diet Diet Texture: Regular Texture Diet Tube feeding: n/a Kelley: Not applicable Wound Care Instructions: leave steri strips in place to be removed at first post op visit Activity/Weight Bearing Restrictions: no bending or twisting-brace when out of bed - Labs/Radiology CBC Date: 04/03/17 (Weekly Q ) CMP Date: 04/03/17 (Weekly Q ) Creatinine Date: 04/07/17 (Weekly Q Friday) Vanco Trough Date and Time: Weekly Q Friday and Call or Fax Lab and Imaging Results to: Dr. Salcido, - Follow Up Care Current Providers and Referrals: LUIS ANGEL TIWARI [Other] Quinten Mayo MD [Medical Doctor] - (see Dr Mayo in 2-3 weeks for a post op check)
[2017-03-31] MEDS: morphINE SR 15 MG TAB PO SCH (08:31)
[2017-03-31] MEDS: SENNOSIDES/DOCUSATE SODIUM TAB PO SCH (08:31)
[2017-03-31] MEDS: FAMOTIDINE 20 MG TAB PO SCH (08:48)
[2017-03-31] MEDS: PANTOPRAZOLE SODIUM 40 MG TAB PO SCH (08:48)
[2017-03-31] MEDS: ENOXAPARIN 40 MG/0.4 ML SYR SC SCH (08:49)
[2017-03-31] MEDS: GABAPENTIN 300 MG CAP PO SCH (08:49)
[2017-03-31] MEDS: SODIUM CHLORIDE 1,000 MG TAB PO SCH ×2 (08:49→11:54)
[2017-03-31] MEDS: DORZOLAMIDE LEFTEYE SCH (08:52)
[2017-03-31] MEDS: TIMOLOL OPTH LEFTEYE SCH (08:52)
[2017-03-31] MEDS: VANCOMYCIN 1.5 GM in D5W 250 ML IV SCH (08:54)
[2017-03-31] MEDS: traMADol 50 MG TAB PO SCH (08:59)
[2017-03-31 11:36] VITALS: BP 130/71; PULSE 75; RESP 16; TEMP 97.9; O2SAT 93
[2017-03-31] MEDS: ACETAMINOPHEN 325 MG TAB PO PRN (11:53)
== END 2017-03-31 13:24 | disposition home health service (06) | DRG 460 ==
LOC: F3N 13:29
PROVIDERS: ADMIT Neurological Surgery; ATTEND Neurological Surgery
PROC: 0SP00AZ Removal of Interbody Fusion Device from Lumbar Vertebral Joint, Open Approach (ICD-10-PCS; principal; 2017-03-27 15:00)
PROC: 0SG00AJ Fusion of Lumbar Vertebral Joint with Interbody Fusion Device, Posterior Approach, Anterior Column, Open Approach (ICD-10-PCS; principal; 2017-03-27 15:00)
PROC: 00NY0ZZ Release Lumbar Spinal Cord, Open Approach (ICD-10-PCS; principal; 2017-03-27 15:00)
PROC: 0SG30AJ Fusion of Lumbosacral Joint with Interbody Fusion Device, Posterior Approach, Anterior Column, Open Approach (ICD-10-PCS; principal; 2017-03-27 15:00)
PROC: 0SP30AZ Removal of Interbody Fusion Device from Lumbosacral Joint, Open Approach (ICD-10-PCS; principal; 2017-03-27 15:00)
PROC: 02HV33Z Insertion of Infusion Device into Superior Vena Cava, Percutaneous Approach (ICD-10-PCS; 2017-03-29)
DX: T84.63XA Infection and inflammatory reaction due to internal fixation device of spine, initial encounter (principal); E87.1 Hypo-osmolality and hyponatremia; T84.296A Other mechanical complication of internal fixation device of vertebrae, initial encounter; M43.8X6 Other specified deforming dorsopathies, lumbar region; M43.8X7 Other specified deforming dorsopathies, lumbosacral region; M48.06 Spinal stenosis, lumbar region; M54.16 Radiculopathy, lumbar region
CPT/HCPCS: 97116-GP; 97161-GP; 97165-GO; C1713; C1751; G8978-GP-CJ; G8979-GP-CI; G8987-GO-CI; G8988-GO-CI; G8989-GO-CI; J0690; J1100; J1170; J1650; J2001; J2405; J2704; J3010; J3370